=== PATIENT | female | born 1955 | race Two or more races ===

== ENCOUNTER 2025-01-21 10:26 | Emergency (ER) | payer MEDICARE, MEDICAID, SELFPAY ==
[2025-01-21] VITALS (8 sets, daily range): BP systolic 122–173; BP diastolic 67–90; PULSE 71–87; RESP 22–26; TEMP 36.8; O2SAT 95–99
--- NOTE | ~2025-01-21 | XR_ITS ---
EXAMINATION: XR chest 2V DATE: 01/21/2025 12:22 INDICATION: Cough and weakness TECHNIQUE: frontal and lateral views of the chest were obtained. COMPARISON: None FINDINGS: Bronchial wall thickening and airspace opacities in the left mid and lower lung zones suspicious for pneumonia. Right lung is clear. No pleural effusion or pneumothorax. The cardiomediastinal silhouette is normal. Coronary arteries atherosclerotic calcifications versus stenting. Mild to moderate thorac ic spondylosis. IMPRESSION: 1. Bronchial wall thickening and airspace opacities in the left mid and lower lung zone suspicious fo r pneumonia. Reviewed, dictated and finalized at location A. IMPRESSION: 1. Bronchial wall thickening and airspace opacities in the left mid and lower l kathya zone suspicious for pneumonia.
--- NOTE | 2025-01-21 11:11 | PC.NURSE ---
Pt sunita Zabala requests to be called with any updates
[2025-01-21 11:57] LABS: Influenza A QL RT-PCR Negative (Negative); Influenza B QL RT-PCR Negative (Negative); RSV RNA, RT-PCR Negative (Negative); SARS-CoV-2 RNA PCR Negative (Negative)
--- NOTE | 2025-01-21 12:05 | ED_ITS ---
HPI - URI/Sore Throat General Chief Complaint: Upper Respiratory Infection Stated Complaint: UPPER RESP S/SX Time Seen by Provider: 01/21/25 10:39 Limitations: language barrier History of Present Illness HPI Narrative: 69-year-old female with a history of diabetes, hypertension presenting with URI symptoms. Started a few days ago with nasal congestion, body aches, fatigue. States that she has had a productive cough that she denies chest pain or shortness of breath. Continues to feel very fatigued. Her has similar symptoms. No fevers, vomiting, diarrhea, leg swelling. History obtained using japanese interpreter iPad. Related Data Allergies Allergy/AdvReac Type Severity Reaction Status Date / Time No Known Allergies Allergy Verified 01/21/25 10:40 Review of Systems 2 Review of Systems: All systems reviewed & are unremarkable except as noted in HPI and below Exam 2 Narrative: GENERAL: Nontoxic, no acute distress, pleasant cooperative HEAD: Normocephalic, atraumatic. EYES: PERRLA and EOMI. ENT: Mucous membranes tacky NECK: Supple. CHEST: No respiratory distress. Crackles in bilateral bases HEART: Regular rate and rhythm ABDOMEN: Soft, nontender, nondistended EXTREMITIES: Normal range of motion. No edema. SKIN: Warm, dry, no rash. NEURO: Alert and oriented x3. PSYCH: Normal mood and affect. Course Vital Signs Vital signs: Vital Signs Temperature 98.2 F 01/21/25 10:31 Pulse Rate 83 01/21/25 10:31 Respiratory Rate 24 H 01/21/25 10:31 Blood Pressure 173/90 H 01/21/25 10:31 Pulse Oximetry 97 01/21/25 10:31 Oxygen Delivery Room Air 01/21/25 10:31 Temperature 98.2 F 01/21/25 10:31 Pulse Rate 79 01/21/25 15:20 Respiratory Rate 24 H 01/21/25 15:20 Blood Pressure 122/67 01/21/25 15:20 Pulse Oximetry 97 01/21/25 15:20 Oxygen Delivery Room Air 01/21/25 10:40 MDM - URI/Sore Throat MDM Narrative Medical decision making narrative: 69-year-old female presenting with several days of URI symptoms. Patient is tachypneic, otherwise vitals are within normal limits. Blood work with hemoglobin of 8.8. Patient states that this is baseline. Patient looks dry, IV fluids are ongoing. Negative for flu, RSV, COVID. Chest x-ray is concerning for pneumonia. Patient received a dose of IV Rocephin and doxycycline. Will send in for Augmentin and doxy for the next 5 days. Recommend close PCP follow- up. Strict return precautions given. Patient and her son and are agreeable with this plan. All questions answered. Discharged in stable condition Differential Diagnosis Differential diagnosis: Likely upper respiratory infection, viral infection, bronchitis, influenza and other (pneumonia) Medical Records Attestation: I reviewed the patient's medical records. Lab Data Attestation: I reviewed the patient's lab results. 01/21/25 13:42 01/21/25 13:42 Labs: Lab Results 01/21/25 01/21/25 Range/Units 11:16 13:42 WBC 8.5 (4.5-10.0) K/mm3 RBC 4.95 (4.2-5.4) M/mm3 Hgb 8.8 L (12.0-15.0) g/dL Hct 30.6 L (37.0-47.0) % MCV 61.8 L (80-100) fl MCH 17.8 L (26-34) pg MCHC 28.8 L (32-36) g/dl RDW 15.3 H (11.5-14.5) % Plt Count 169 (150-375) k/mm3 MPV TNP Immature Gran % (Auto) 0.7 H (0-0.5) % Neut % (Auto) 76.0 H (45.5-73.1) % Lymph % (Auto) 14.2 L (18.3-44.2) % [place] % (Auto) 8.8 H (2.6-8.5) % Eos % (Auto) 0.1 (0-4.4) % Baso % (Auto) 0.2 (0.2-1.2) % Lymph # (Auto) 1.20 (0.9-3.2) K/mm3 [place] # (Auto) 0.7 H (0.1-0.6) K/mm3 Eos # (Auto) 0.0 (0-0.3) K/mm3 Baso # (Auto) 0.0 (0.0-0.1) K/mm3 Abs Immat Gran (auto) 0.06 H (0.00-0.031) K/mm3 Absolute Neuts (auto) 6.4 (1.3-6.7) K/mm3 Absolute Nucleated RBC 0.000 (0.0-0.012) K/mm3 Band Neutrophils % Not Reportable Nucleated RBC % 0.0 (0.0-0.2) % Platelet Estimate Adequate (Adequate) % Immature Plt Fraction 3.8 (0.9-11.2) % Microcytosis 1+ (NORMAL) Ovalocytes 1+ [place] Cells 2+ Schistocytes None seen Sodium 130 L (137-145) mmol/L Potassium 4.2 (3.4-5.0) mmol/L Chloride 97 L (98-107) mmol/L Carbon Dioxide 19 L (22-30) mmol/L Anion Gap 14 H (4-12) mmol/L BUN 21 H (7-17) mg/dL Creatinine 1.20 H (0.7-1.0) mg/dL Estim Creat Clear Calc 34 ml/min Estimated GFR 45 L (59 - ) Glucose 277 H (65-110) mg/dL Lactic Acid 1.0 (0.7-2.0) mmol/L Calcium 8.2 L (8.4-10.2) mg/dL Total Bilirubin 0.7 (0.2-1.3) mg/dL AST 33 (14-36) U/L ALT 19 (6-35) U/L Alkaline Phosphatase 59 (38-126) U/L Total Protein 6.0 L (6.3-8.2) g/dL Albumin 3.0 L (3.5-5.1) g/dL Influenza A (RT-PCR) Negative (Negative) Influenza B (RT-PCR) Negative (Negative) RSV (RT-PCR) Negative (Negative) SARS-CoV-2 RNA (RT-PCR) Negative (Negative) Imaging Data Radiologist's impression: ITS Impressions Chest X-Ray 01/21/25 12:26 IMPRESSION: 1. Bronchial wall thickening and airspace opacities in the left mid and lower lung zone suspicious for pneumonia. Critical Care Time Critical Care Time Critical Care Time: No Discharge Plan Discharge Clinical Impression: Pneumonia, Chronic anemia Patient Disposition: Home Condition: Stable Instructions: Antibiotic Form, Pneumonia (ED) Additional Instructions: Your chest x-ray shows pneumonia. Please complete the antibiotics as prescribed and follow-up closely with primary care. If your symptoms worsen or other concerning symptoms arise, please return to the ER. Patient Language: [place] Prescriptions: New amoxicillin-pot clavulanate 875-125 mg tablet 1 tablet PO Q12H 5 Days Qty: 10 0RF doxycycline hyclate 100 mg tablet 100 mg PO BID 5 Days Qty: 10 0RF Follow-up/Referrals: Richard Cano MD [Physician] -
[2025-01-21] MEDS: SODIUM CHLORIDE 0.9% IV 1,000 ML 999 ML IV CONT (13:47)
[2025-01-21] MEDS: KETOROLAC 15 MG/ML VIAL (*BKC) IV PUSH (13:48)
--- NOTE | 2025-01-21 13:53 | PC.NURSE ---
Per ALIE Salvador blood cultures are not needed prior to starting antibiotics
[2025-01-21 13:59] LABS: Basophils Percent Auto 0.2 % (0.2-1.2); Eosinophils Percent Auto 0.1 % (0-4.4); Hematocrit 30.6 % (37.0-47.0); Hemoglobin 8.8 g/dL (12.0-15.0); Immature Granulocyte Absolute 0.06 K/mm3 (0.00-0.031); Immature Granulocyte Percent A 0.7 % (0-0.5); Immature Platelet Fraction Pct 3.8 % (0.9-11.2); Lymphocytes Percent Auto 14.2 % (18.3-44.2); Mean Corpuscular HGB Conc 28.8 g/dl (32-36); Mean Corpuscular Hemoglobin 17.8 pg (26-34); Mean Corpuscular Volume 61.8 fl (80-100); Monocytes Absolute Auto 0.7 K/mm3 (0.1-0.6); Monocytes Percent Auto 8.8 % (2.6-8.5); Neutrophils Absolute Auto 6.4 K/mm3 (1.3-6.7); Platelet Count Result 169 k/mm3 (150-375); Red Blood Count 4.95 M/mm3 (4.2-5.4); Red Cell Distribution Width 15.3 % (11.5-14.5); White Blood Count 8.5 K/mm3 (4.5-10.0)
[2025-01-21 14:14] LABS: Alanine Aminotransferase 19 U/L (6-35); Alkaline Phosphatase 59 U/L (38-126); Anion Gap 14 mmol/L (4-12); Aspartate Amino Transferase 33 U/L (14-36); Bilirubin,Total 0.7 mg/dL (0.2-1.3); Blood Urea Nitrogen 21 mg/dL (7-17); Calcium 8.2 mg/dL (8.4-10.2); Carbon Dioxide 19 mmol/L (22-30); Chloride 97 mmol/L (98-107); Estimated CRCL calculation 34 ml/min; Estimated Glomerular Filt Rate 45; Glucose 277 mg/dL (65-110); Potassium 4.2 mmol/L (3.4-5.0); Sodium 130 mmol/L (137-145)
[2025-01-21] MEDS: cefTRIAXone 2 GM/NS 100 ML 2 GM/100 ML BAG IVPB (14:16)
[2025-01-21 14:47] LABS: Platelet Estimate Adequate (Adequate)
[2025-01-21 14:48] LABS: Burr Cells 2+; Microcytosis 1+ (NORMAL); Ovalocytes 1+; Schistocytes None Seen
[2025-01-21] MEDS: DOXYCYCLINE 100 MG/NS 100 ML 100 MG/100 ML BAG IVPB (15:15)
--- NOTE | 2025-01-21 15:19 | PC.NURSE ---
Dr. Luna at bedside updating pt. and pt. son at bedside.
--- NOTE | 2025-01-21 16:24 | PC.NURSE ---
Son called and notified pt. is ready for d/c. Son state he will be to bedside in 15 minutes to pick her up.
== END 2025-01-21 16:53 | disposition home or self-care (01) ==
PROVIDERS: Emergency Provider Emergency Medicine; PCP Internal Medicine
DX: J18.9 Pneumonia, unspecified organism (principal); D64.9 Anemia, unspecified; Z20.822 Contact with and (suspected) exposure to COVID-19; E11.9 Type 2 diabetes mellitus without complications; I10 Essential (primary) hypertension
CPT/HCPCS: 36415; 71046; 80053; 83605; 85025; 85055; 87637; 96361; 96365; 96368; 96375; 99284; J0696; J1885; J7030

== ENCOUNTER 2025-03-04 16:07 | Inpatient (IN) | payer MEDICARE, MEDICAID, SELFPAY ==
[2025-03-04] VITALS (14 sets, daily range): BP systolic 169–207; BP diastolic 97–112; PULSE 91–103; RESP 12–25; TEMP 37.1–37.3; O2SAT 86–99; BMI 24.2
--- NOTE | ~2025-03-04 | CT_ITS ---
EXAMINATION: CTA chest PE protocol DATE: 03/04/2025 21:30 CDT INDICATION: Borderline hypoxia elevated d-dimer TECHNIQUE: Computed tomographic angiography (CTA) of the chest was performed with 100 mL Omnipaque-35 0 intravenous contrast. The dose-length product was 194.67 mGy-cm. Maximum intensity projection 3D-re constructions of the aorta and other arteries were constructed by the technologist on a separate work station. COMPARISON: None. FINDINGS/OBSERVATIONS: PULMONARY ARTERIES: No filling defect is identified within the main or proximal pulmonary artery. The main pulmonary artery is not enlarged. THORACIC AORTA: No aneurysmal dilatation or dissection is present. The great vessels are intact LUNGS: Large bilateral pleural effusions with adjacent compressive atelectasis MEDIASTINUM: No morphologically suspicious or pathologically enlarged lymph nodes are identified with in the mediastinum or bilateral axilla. BONES OF THE CHEST: No acute fracture. No significant degenerative disease. No lytic or blastic lesions. HEART: The heart is enlarged, without pericardial effusion. Reflux of intravenous contrast into the hepatic veins suggesting a component of right heart failure. IMPRESSION: No pulmonary embolus. No thoracic aortic dissection. Large bilateral pleural effusions with adjacent atelectasis. Findings suggesting right heart failure, as detailed above. Reviewed, dictated and finalized at location A.
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
--- NOTE | ~2025-03-04 | XR_ITS ---
EXAMINATION: XR chest 1V DATE: 03/04/2025 17:20 INDICATION: Fall TECHNIQUE: frontal view of the chest was obtained. COMPARISON: Chest radiograph dated 01/21/2025 FINDINGS: Interstitial and airspace opacities in the bilateral mid to lower lung zones. There is likely small l eft pleural effusion with some fluid tracking along the fissure. No pneumothorax. Portions of the lef t heart border obscured by the adjacent lung disease or effusion. IMPRESSION: 1. Interstitial and airspace opacities in the bilateral mid and lower lung zones which could be due t o pulmonary edema, pneumonia, atelectasis or some combination thereof. 2. Small left pleural effusion. Reviewed, dictated and finalized at location A. IMPRESSION: 1. Interstitial and airspace opacities in the bilateral mid and lower lung zone s which could be due to pulmonary edema, pneumonia, atelectasis or some combina tion thereof. 2. Small left pleural effusion.
--- NOTE | ~2025-03-04 | XR_ITS ---
EXAMINATION: XR knee RT min 4V DATE: 03/04/2025 17:20 INDICATION: Right knee injury post fall TECHNIQUE: Anteroposterior, 2 oblique and crosstable lateral views of the right knee were obtained COMPARISON: None. FINDINGS: Alignment is normal. No fracture. Joint spaces appear normal on nonweightbearing imaging. No right k nee joint effusion/layering lipohemarthrosis. Diffuse subcutaneous edema about the visualized calf, k nee and distal thigh. IMPRESSION: 1. No right knee joint effusion or osseous abnormality. Reviewed, dictated and finalized at location A.
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
--- NOTE | ~2025-03-04 | CT_ITS ---
EXAMINATION: CT lumbar spine wo con DATE: 03/04/2025 17:25 INDICATION: Fall TECHNIQUE: Computed tomography (CT) of the lumbar spine was performed without intravenous contrast. A utomated exposure control and iterative reconstruction technique were employed. The dose-length produ ct was 185.25 mGy-cm. COMPARISON: None FINDINGS: Alignment is normal. Bilateral hypoplastic riblets at T12 and left-sided sacralization at L5. Acute-a ppearing L1 compression fracture with 20% anterior vertebral body height loss. Chronic appearing mini mal anterior wedging at T12 and L3 without evident acute fracture. Schmorl's node along the inferior endplate of L2. Mild disc height loss at L2-L3 and L3-L4. Vacuum phenomena at the L3-L4 and L4-L5 dis c spaces. There are bilateral pleural effusions. The following disc levels are specifically discussed : T11-T12: The disc does not extend beyond the endplate margin. There is mild to moderate bilateral fac et joint osteoarthritis. There is mild left neural foraminal stenosis. There is no central canal sten osis. T12-L1: Disc is mildly bulging. There is mild to moderate bilateral facet joint osteoarthritis. There is mild left neural foraminal stenosis. There is mild central canal stenosis. L1-L2: The disc does not extend beyond the endplate margin. There is mild to moderate bilateral facet joint osteoarthritis. There is no neural foraminal stenosis. There is no central canal stenosis. L2-L3: Disc is bulging. There is mild right and moderate left facet joint osteoarthritis. There is mi ld right and moderate left neural foraminal stenosis. There is mild to moderate central canal stenosi s. L3-L4: Disc is bulging. There is mild hypertrophy of the ligamentum flavum. There is mild to moderat e bilateral facet joint osteoarthritis. There is mild to moderate right and moderate left neural fora ilda stenosis. There is moderate central canal stenosis. L4-L5: Disc is bulging. There is hypertrophy of the ligamentum flavum. There is mild to moderate left and severe right facet joint osteoarthritis. There is moderate bilateral neural foraminal stenosis. There is severe central canal stenosis. L5-S1: Disc is mildly bulging. There is severe bilateral facet joint osteoarthritis. There is mild bi lateral neural foraminal stenosis. There is mild central canal stenosis. IMPRESSION: 1. Acute L1 compression fracture with 20% anterior vertebral body height loss. 2. Mild to moderate lumbar vertebral body height loss most notable for severe central canal stenosis at L4-L5. 3. Bilateral pleural effusions. Reviewed, dictated and finalized at location A. IMPRESSION: 1. Acute L1 compression fracture with 20% anterior vertebral body height loss. 2. Mild to moderate lumbar vertebral body height loss most notable for severe c entral canal stenosis at L4-L5. 3. Bilateral pleural effusions.
--- NOTE | 2025-03-04 16:38 | ECG_ITS ---
Test Date: 2025-03-04 18:29:49 Measurements Intervals [place] Rate: 98 P: 30 GA: 144 QRS: -19 QRSD: 76 T: 75 QT: 351 QTc: 449 Interpretive Statements SINUS RHYTHM POSSIBLE LEFT ATRIAL ENLARGEMENT ANTEROSEPTAL INFARCT, AGE INDETERMINATE BORDERLINE ST-T WAVE ABNORMALITY- HIGH LATERAL LEADS ABNORMAL ECG No previous ECG available for comparison Electronically Signed On 03-04-2025 20:16:24 CDT by Brendan Ernst D.O.
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
[2025-03-04 18:38] LABS: Alveolar/Arterial O2 Gradient 123.5 mmHg; Base Excess ABG -1.9 mEq/l (+/-2.0); Fractional Inspired Oxygen 36 %; HCO3 ABG 21.9 mEq/l (22.0-26.0); Oxygen Content ABG 12.8 %vol (16.0-22.0); Oxygen Saturation ABG 97.5 % (95.0-100.0); Oxyhemoglobin 95.9 % THb (90.0-100.0); PCO2 ABG 33.6 mmHg (35.0-45.0); PO2 ABG 94.2 mmHg (80.0-100.0); PO2 FiO2 Ratio Arterial Blood 2.62 %; Total Hemoglobin 9.4 g/dL (12.0-18.0); pH ABG 7.432 (7.350-7.450)
[2025-03-04 18:40] LABS: Device NASAL CANNULA; Modified Allen's Test Pass; Site Drawn LEFT RADIAL
[2025-03-04 18:55] LABS: Basophils Percent Auto 0.1 % (0.2-1.2); Eosinophils Percent Auto 0.4 % (0-4.4); Hematocrit 31.2 % (37.0-47.0); Hemoglobin 9.1 g/dL (12.0-15.0); Immature Granulocyte Percent A 1.4 % (0-0.5); Immature Platelet Fraction Pct 2.1 % (0.9-11.2); Lymphocytes Absolute Auto 1.09 K/mm3 (0.9-3.2); Lymphocytes Percent Auto 15.7 % (18.3-44.2); Mean Corpuscular HGB Conc 29.2 g/dl (32-36); Mean Corpuscular Volume 61.7 fl (80-100); Monocytes Absolute Auto 0.4 K/mm3 (0.1-0.6); Monocytes Percent Auto 6.2 % (2.6-8.5); Neutrophils Absolute Auto 5.3 K/mm3 (1.3-6.7); Neutrophils Percent Auto 76.2 % (45.5-73.1); Platelet Count Result 272 k/mm3 (150-375); Red Blood Count 5.06 M/mm3 (4.2-5.4); Red Cell Distribution Width 18.9 % (11.5-14.5); White Blood Count 6.9 K/mm3 (4.5-10.0)
[2025-03-04 19:04] LABS: Alanine Aminotransferase 17 U/L (6-35); Albumin Level 2.9 g/dL (3.5-5.1); Alkaline Phosphatase 67 U/L (38-126); Anion Gap 7 mmol/L (4-12); Aspartate Amino Transferase 24 U/L (14-36); Bilirubin,Total 0.5 mg/dL (0.2-1.3); Blood Urea Nitrogen 12 mg/dL (7-17); Calcium 8.9 mg/dL (8.4-10.2); Carbon Dioxide 22 mmol/L (22-30); Chloride 104 mmol/L (98-107); Estimated CRCL calculation 28 ml/min; Estimated Glomerular Filt Rate 59; Glucose 330 mg/dL (65-110); Sodium 133 mmol/L (137-145); Total Protein 5.7 g/dL (6.3-8.2)
[2025-03-04 19:07] LABS: Lactic Acid Reflex 1.2 mmol/L (0.7-2.0)
[2025-03-04 19:13] LABS: NT Pro B Type Natriuretic Pept 24500 pg/mL (19.9-100)
[2025-03-04 19:16] LABS: INR 0.9; Prothrombin Time 12.3 Seconds (11.1-14.7)
[2025-03-04 19:17] LABS: Partial Thromboplastin Time 28.6 Seconds (22.3-36.8)
[2025-03-04 19:27] LABS: D Dimer 2.31 ug/mL (<0.48)
[2025-03-04 19:30] LABS: Influenza A QL RT-PCR Negative (Negative); Influenza B QL RT-PCR Negative (Negative); RSV RNA, RT-PCR. Negative (Negative); SARS-CoV-2 RNA PCR Negative (Negative)
[2025-03-04 19:38] LABS: Platelet Estimate Adequate (Adequate)
[2025-03-04 19:39] LABS: Band Neutrophils Percent 0 % (0-6); Hypochromasia 1+; Schistocytes None Seen
[2025-03-04 19:40] LABS: Anisocytosis 2+; Microcytosis 2+ (NORMAL)
[2025-03-04] MEDS: FUROSEMIDE INJ 40 MG/4 ML VIAL IV PUSH (19:46)
[2025-03-04] MEDS: MORPHINE SULFATE (*CRX) 2 MG/ML INJ IV PUSH (19:46)
--- NOTE | 2025-03-04 19:53 | PC.NURSE ---
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
[2025-03-04 20:16] LABS: Add Urine Microscopic? YES; Appearance Urine Clear (Clear); Bacteria Urine None Seen /hpf; Bilirubin Urine Negative (Negative); Blood Urine 1+ (Negative); Color Urine Yellow (Yellow); Glucose Urine UA 3+ mg/dL (Negative); Ketones Urine Trace mg/dL (Negative); Leukocyte Esterase Ur Negative LEU/UL (Negative); Nitrate Urine Negative (Negative); Protein Urine 4+ mg/dL (Negative); RBC Urine 0-2 /hpf (0-2); Specific Grav Ur 1.023 (1.001-1.035); Squamous Epithelial Cell Urine None Seen /hpf (Few); Urobilinogen Urine 0.2 mg/dL (<2.0); WBC Urine 0-5 /hpf (0-3)
[2025-03-05] VITALS (12 sets, daily range): BP systolic 130–198; BP diastolic 61–103; PULSE 86–108; RESP 14–18; TEMP 36.2–37.3; O2SAT 95–100
--- NOTE | 2025-03-05 | ECHO_ITS ---
Patient Info Name: Lizzy Zabala Age: 69 years : 1955 Gender: Female Ht: 49 in Wt: 111 lbs BSA: 1.35 m2 HR: 90 bpm BP: 190 / 101 mmHg Technical Quality: Good Exam Date: 03/05/2025 11:11 AM Patient Status: I Admit Date: 03/05/2025 Exam Type: CA echo dop color flow w con Complete two-dimensional, color flow and Doppler transthoracic echocardiogram is performed with contrast to opacify the left ventricle and to improve the deliniation of the left ventricle endocardial borders. Staff Referring Physician: Donita Bernal [employer] Rental Clerk: Zee Parmar Attending Provider: Narda Burt DO Contrast/Agitated Saline Contrast/Ag. Saline: Definity Amount: 2.00 ml Administered By: Zee Parmar Existing IV Access: Yes IV Access Condition: patent with no signs of infiltration Summary 1. Left ventricular chamber dimension is mildly enlarged. 2. Left ventricular systolic function is moderately reduced, estimated at 35-40. 3. There is mild concentric increased left ventricular wall thickness. 4. The left ventricular diastolic function is grade I diastolic dysfunction. 5. Definity contrast administered improved wall motion interpretation. 6. E/e' 11 is mildly elevated. 7. Left atrial chamber dimension is mildly enlarged. 8. There is mild aortic valve sclerosis. 9. There is trace aortic valve regurgitation. 10. There is trace mitral valve regurgitation. 11. There is mild tricuspid valve regurgitation. 12. No pulmonary hypertension, estimated pulmonary arterial systolic pressure is 26 mmHg. 13. There is trace pulmonic regurgitation. 14. Pleural effusion. Left Ventricle E/e' 11 is mildly elevated. Left ventricular chamber dimension is mildly enlarged. Left ventricular systolic function is moderately reduced, estimated at 35-40. There is mild concentric increased left ventricular wall thickness. The left ventricular diastolic function is grade I diastolic dysfunction. Definity contrast administered improved wall motion interpretation. Right Ventricle Right ventricular chamber dimension is normal. Right ventricular systolic function is normal and with normal TAPSE 2.0 cm. Left Atria Left atrial chamber dimension is mildly enlarged. Right Atria Right atrial chamber dimension is normal. Aortic Valve The aortic valve is trileaflet. There is mild aortic valve sclerosis. There is no aortic valve stenosis. There is trace aortic valve regurgitation. Pulmonic Valve There is trace pulmonic regurgitation. Mitral Valve There is no mitral valve stenosis. There is trace mitral valve regurgitation. Tricuspid Valve There is mild tricuspid valve regurgitation. No pulmonary hypertension, estimated pulmonary arterial systolic pressure is 26 mmHg. Pericardium/Pleural There is no pericardial effusion. Pleural effusion. Inferior Vena Cava Normal inferior vena cava with >50% collapse upon inspiration consistent with normal right atrial pressure, 5 mmHg. Aorta The aortic root size at the sinus of Valsalva is normal. Left Ventricular Outflow Tract Name Value Normal LVOT 2D LVOT Diameter 1.7 cm LVOT Doppler LVOT Peak Velocity 80 cm/s LVOT Peak Gradient 3 mmHg LVOT Mean Gradient 1 mmHg LVOT VTI 14 cm LVOT Stroke Volume 33 ml LVOT CO 3.0 l/min LVOT CI 2.2 l/min/m2 Pulmonic Valve Name Value Normal RVOT Doppler RVOT Peak Velocity 82 cm/s RVOT Peak Gradient 3 mmHg PV Doppler PV Peak Velocity 115 cm/s PV Peak Gradient 5 mmHg Mitral Valve Name Value Normal MV Diastolic Function MV E Peak Velocity 35 cm/s MV A Peak Velocity 91 cm/s MV E/A 0.4 MV Decel Time (PW) 285 ms MV Annular TDI MV E/e' (Septal) 10.6 MV E/e' (Lateral) 13.5 MV E/e' (Average) 12.1 Tricuspid Valve Name Value Normal TV Regurgitation Doppler TR Peak Velocity 229 cm/s TR Peak Gradient 21 mmHg Estimated PAP/RSVP RA Pressure 5 mmHg <=5 PA Systolic Pressure 26 mmHg <36 RV Systolic Pressure 26 mmHg <36 Aortic Valve Name Value Normal AV Doppler AV Peak Velocity 131 cm/s AV Peak Gradient 7 mmHg AV Area (Cont Eq Ezequiel) 1.4 cm2 AV DI (Ezequiel) 0.61 AV Regurgitation 2D LVOT Area 2.3 cm2 Ventricles Name Value Normal LV Dimensions 2D/MM IVS Diastolic Thickness (2D) 1.0 cm 0.6-1.0 LVID Diastole (2D) 4.8 cm 3.8-5.2 LVIW Diastolic Thickness (2D) 0.9 cm 0.6-0.9 LVID Systole (2D) 4.0 cm 2.2-3.5 LVOT Diameter 1.7 cm LV Mass (2D Cubed) 151.72 g 67.00-162.00 LV Mass Index (2D Cubed) 112 g/m2 43-95 Relative Wall Thickness (2D) 0.36 <=0.42 LV Fractional Shortening/Ejection Fraction 2D/MM LV Fractional Shortening (2D) 16 % 27-45 LV EF (2D Teichholz) 34 % LV Diastolic Volume (4C MOD) 61 ml LV EF (4C MOD) 25 % LV Diastolic Volume (2C MOD) 76 ml LV EF (2C MOD) 29 % LV Diastolic Volume (BP MOD) 72 ml 46-106 LV Diastolic Volume Index (BP MOD) 53 ml/m2 29-61 LV Systolic Volume (BP MOD) 50 ml 14-42 LV Systolic Volume Index (BP MOD) 37 ml/m2 8-24 LV EF (BP MOD) 30 % 54-74 LV Diastolic Length (4C) 6.4 cm LV Systolic Length (4C) 6.6 cm LV Stroke Volume (4C MOD) 15 ml Atria Name Value Normal LA Dimensions LA Volume (4C A-L) 43 ml LA Volume (BP A-L) 42 ml RA Dimensions RA Systolic Major [place] Length (4C) 4.4 cm 2.2-2.8 RA Area (4C) 6.8 cm2 <=18.0 Report Signatures
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
[2025-03-05 08:15] LABS: Glucose Point of Care 252 mg/dl (65-105)
[2025-03-05] MEDS: EMPAGLIFLOZIN 25 MG TABLET BY MOUTH (08:30)
[2025-03-05] MEDS: ATORVASTATIN 20 MG TABLET PO (08:30)
[2025-03-05] MEDS: FUROSEMIDE INJ 40 MG/4 ML VIAL IV PUSH ×2 (08:31→20:42)
[2025-03-05] MEDS: MUPIROCIN 2% OINT 22 GM TUBE 1 APPLIC TOPICAL (11:45)
[2025-03-05 12:16] LABS: Glucose Point of Care 341 mg/dl (65-105)
[2025-03-05] MEDS: hydrALAZINE HCL 20 MG/ML VIAL 10 MG IV PUSH (12:18)
[2025-03-05] MEDS: INSULIN ASPART (*BKC) 100 UNITS/ML SUB-Q ×3 (12:18→20:41)
[2025-03-05] MEDS: PERFLUTREN LIPID MICROSPHERES 1.5 ML VIAL DILUTED TO 10 ML TOTAL VOLUME IV PUSH (12:45)
--- NOTE | 2025-03-05 13:02 | IVDEFINITY ---
Prior to administration of IV Definity the patient was educated on the risks and benefits of the imaging enhancing agent including potential adverse side effects. The patient verbalized understanding. Allergies were verified. No exclusion criteria were identified and at least one of the following inclusion criteria were met: 1) physician request, 2) patient technically difficult to image (per the [place] [employer] guidelines of two or more segments not discernable within the apical view), or 3) questionable left ventricular function. ?
[2025-03-05 16:04] LABS: NT Pro B Type Natriuretic Pept > 30000 pg/mL (19.9-100)
[2025-03-05 16:48] LABS: Glucose Point of Care 349 mg/dl (65-105)
[2025-03-05 21:29] LABS: Glucose Point of Care 367 mg/dl (65-105)
[2025-03-06] VITALS (13 sets, daily range): BP systolic 153–180; BP diastolic 80–89; PULSE 78–97; RESP 14–18; TEMP 36.8–37.2; O2SAT 95–100
[2025-03-06] MEDS: METOPROLOL TARTRATE INJ 5 MG/5 ML VIAL IV PUSH (06:11)
[2025-03-06 08:19] LABS: Glucose Point of Care 326 mg/dl (65-105)
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
[2025-03-06] MEDS: ATORVASTATIN 20 MG TABLET PO (09:30)
[2025-03-06] MEDS: EMPAGLIFLOZIN 25 MG TABLET BY MOUTH (09:30)
[2025-03-06] MEDS: FUROSEMIDE INJ 40 MG/4 ML VIAL IV PUSH (09:30)
[2025-03-06] MEDS: MUPIROCIN 2% OINT 22 GM TUBE 1 APPLIC TOPICAL (09:32)
[2025-03-06] MEDS: ENOXAPARIN 40 MG/0.4 ML SYRINGE SUB-Q (09:32)
[2025-03-06] MEDS: INSULIN ASPART (*BKC) 100 UNITS/ML SUB-Q ×5 (09:32→21:14)
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
[2025-03-06 11:16] LABS: Basophils Percent Auto 0.2 % (0.2-1.2); Eosinophils Absolute Auto 0.1 K/mm3 (0-0.3); Eosinophils Percent Auto 1.8 % (0-4.4); Hematocrit 31.2 % (37.0-47.0); Hemoglobin 9.1 g/dL (12.0-15.0); Immature Granulocyte Absolute 0.06 K/mm3 (0.00-0.031); Immature Platelet Fraction Pct 1.9 % (0.9-11.2); Lymphocytes Absolute Auto 1.06 K/mm3 (0.9-3.2); Lymphocytes Percent Auto 17.4 % (18.3-44.2); Mean Corpuscular HGB Conc 29.2 g/dl (32-36); Mean Corpuscular Hemoglobin 18.1 pg (26-34); Mean Corpuscular Volume 61.9 fl (80-100); Mean Platelet Volume 10.5 fl (7.4-10.4); Monocytes Absolute Auto 0.5 K/mm3 (0.1-0.6); Monocytes Percent Auto 7.6 % (2.6-8.5); Neutrophils Absolute Auto 4.4 K/mm3 (1.3-6.7); Platelet Count Result 283 k/mm3 (150-375); Red Blood Count 5.04 M/mm3 (4.2-5.4); Red Cell Distribution Width 18.6 % (11.5-14.5); White Blood Count 6.1 K/mm3 (4.5-10.0)
[2025-03-06 11:25] LABS: Alanine Aminotransferase 14 U/L (6-35); Albumin Level 2.7 g/dL (3.5-5.1); Alkaline Phosphatase 62 U/L (38-126); Anion Gap 7 mmol/L (4-12); Aspartate Amino Transferase 21 U/L (14-36); Bilirubin,Total 0.5 mg/dL (0.2-1.3); Blood Urea Nitrogen 13 mg/dL (7-17); Calcium 8.9 mg/dL (8.4-10.2); Carbon Dioxide 28 mmol/L (22-30); Chloride 98 mmol/L (98-107); Estimated Glomerular Filt Rate 48; Glucose 418 mg/dL (65-110); Potassium 3.3 mmol/L (3.4-5.0); Sodium 133 mmol/L (137-145); Total Protein 5.6 g/dL (6.3-8.2)
[2025-03-06 11:35] LABS: NT Pro B Type Natriuretic Pept 20100 pg/mL (19.9-100)
[2025-03-06 12:20] LABS: Glucose Point of Care 389 mg/dl (65-105)
--- NOTE | 2025-03-06 12:22 | PM.CNCAR ---
Assessment and Plan Assessment and plan (1) Acute heart failure: Code(s): I50.9 - Heart failure, unspecified Status: Acute Plan 69-year-old woman with diabetes, hypertension, and hyperlipidemia presented with mechanical fall found to be in acute decompensated systolic heart failure Acute decompensated systolic heart failure of new onset -she is now euvolemic after diuresis -will stop her Lasix and start her on Entresto 24-26 mg p.o. b.i.d. -we will start her on metoprolol succinate 25 mg p.o. daily -she is already on Jardiance for diabetes -I have explained the ischemic eval via cardiac catheterization procedure in detail along with its risk and benefits to the patient via [employer] as well as to the family -patient and her family agreed to proceed forward will be scheduled for tomorrow -keep patient NPO past midnight Hypertension -likely will be better control on Entresto 24-26 mg p.o. b.i.d. Hyperlipidemia -continue atorvastatin 20 mg every evening History of Present Illness History of Present Illness Consult date/time: 03/06/25 12:22 Requesting physician: Ulisses Jeff PA-C Consult reason: congestive heart failure Reason For Visit: Hypoxia, Pleural effusions, CHF exacerbation Narrative: 69-year-old woman with diabetes, hypertension, and hyperlipidemia presented with mechanical fall. 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 Upon arrival she was found to have lower extremity swelling as well as evidence of vascular congestion on chest imaging. She denies any orthopnea and chest pain. I spoke with her son Tatianna Zabala (Terence) and his under findings of congestive heart failure along with the workup to determine if she has ischemic cardiomyopathy. Have discussed the cardiac catheterization procedure in detail along with its risk and benefits. Have also spoke with the patient via [employer], Nicky [phone]. All questions were answered and patient and family agree to proceed forward. Review of Systems Cardiovascular: Cardiovascular: Reports as per HPI Respiratory: Respiratory: Reports as per HPI [facility] Past Medical History Medical History Diabetes Hypertension Social History Social History Social History: Originally from [facility]; resides in [facility] Smoking status: Never smoker Alcohol intake: never Substance use: never Substance use type: does not use Do You Feel Safe in your Home?: Yes Lack of Transportation: No Lack of Food: Never True Current Housing: I Have Housing Concerned About Future Housing: No Difficulty Paying Gas/Electric Bills: No Difficulty Paying for Meds: No Currently Unemployed: No Education: Decline to Answer Difficulty w/ Childcare or Family Care: No Living arrangements: with family Spiritual care concerns: No Meds Home Medications and Allergies Home Medications ?Medication ?Instructions ?Recorded ?Confirmed ?Type atorvastatin 20 mg tablet (Lipitor) 20 mg PO DAILY 03/04/25 03/04/25 History dapagliflozin propanediol 10 mg 10 mg PO DAILY 03/04/25 03/04/25 History tablet (Farxiga) metformin 500 mg tablet 1,000 mg PO DAILY 03/04/25 03/04/25 History Allergies Allergy/AdvReac Type Severity Reaction Status Date / Time No Known Allergies Allergy Verified 01/21/25 10:40 Vital Signs Vital Signs - 24 hr 03/05/25 13:56 03/05/25 14:00 03/05/25 16:00 Temperature 36.2 C L 37.3 C Pulse Rate 98 108 H 97 Respiratory Rate 16 14 Blood Pressure 130/61 139/70 Pulse Oximetry 99 97 Oxygen Delivery 03/05/25 20:00 03/05/25 20:30 03/05/25 21:41 Temperature 36.6 C Pulse Rate 105 H 104 H Respiratory Rate 18 Blood Pressure 150/75 H Pulse Oximetry 95 Oxygen Delivery Room Air 03/06/25 00:00 03/06/25 04:00 03/06/25 05:37 Temperature 37.2 C Pulse Rate 94 81 97 Respiratory Rate 18 Blood Pressure 180/87 H Pulse Oximetry 97 Oxygen Delivery 03/06/25 06:11 03/06/25 07:45 03/06/25 08:00 Temperature Pulse Rate 97 78 Respiratory Rate Blood Pressure Pulse Oximetry 97 Oxygen Delivery Room Air 03/06/25 09:30 Temperature Pulse Rate Respiratory Rate Blood Pressure Pulse Oximetry Oxygen Delivery Room Air Exam Const: General: comfortable HENMT: Mouth: Yes moist mucous membranes Eyes: EOM: EOMs intact bilaterally Neck: Neck: no JVD Resp: Effort & Inspection: normal respiratory effort Auscultation: clear to auscultation bilaterally Cardio: Rate: regular rate Rhythm: regular rhythm GI: GI Palp: Yes Soft to palpation Extrem: General: no pedal edema Results Labs and Meds 03/04/25 18:39 03/06/25 10:42 Lab results: Cardiac Enzymes 03/06/25 Range/Units 10:42 AST 21 (14-36) U/L Comprehensive Metabolic Panel 03/06/25 Range/Units 10:42 Sodium 133 L (137-145) mmol/L Potassium 3.3 L (3.4-5.0) mmol/L Chloride 98 (98-107) mmol/L Carbon Dioxide 28 (22-30) mmol/L BUN 13 (7-17) mg/dL Creatinine 1.13 H (0.7-1.0) mg/dL Glucose 418 H (65-110) mg/dL Calcium 8.9 (8.4-10.2) mg/dL AST 21 (14-36) U/L ALT 14 (6-35) U/L Alkaline Phosphatase 62 (38-126) U/L Total Protein 5.6 L (6.3-8.2) g/dL Albumin 2.7 L (3.5-5.1) g/dL Intake and Output 03/05/25 03/06/25 03/06/25 23:59 07:59 15:59 Intake Total 550 150 120 Output Total 3000 900 Balance -2450 -750 120 Intake: Oral 550 150 120 Output: Catheter Urine 3000 900 External/Condom 3000 900
[2025-03-06 12:45] LABS: Burr Cells 1+; Hypochromasia 1+; Microcytosis 2+ (NORMAL); Ovalocytes 1+; Platelet Estimate Adequate (Adequate); Schistocytes None Seen; Target Cells 1+
[2025-03-06] MEDS: METOPROLOL SUCCINATE EXT REL 25 MG TABCR PO (12:53)
[2025-03-06] MEDS: SACUBITRIL/VALSARTAN 24-26 MG TABLET 1 TAB PO ×2 (12:54→21:14)
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
[2025-03-06 17:06] LABS: Glucose Point of Care 432 mg/dl (65-105)
[2025-03-06 21:07] LABS: Glucose Point of Care 305 mg/dl (65-105)
[2025-03-06] MEDS: INSULIN GLARGINE (*BKC) 100 UNITS/ML 10 UNITS SUB-Q (21:14)
[2025-03-07] VITALS (24 sets, daily range): BP systolic 128–170; BP diastolic 63–88; PULSE 68–94; RESP 16–22; TEMP 36.6–37; O2SAT 90–97
[2025-03-07 05:19] LABS: Basophils Percent Auto 0.2 % (0.2-1.2); Eosinophils Absolute Auto 0.1 K/mm3 (0-0.3); Eosinophils Percent Auto 2.1 % (0-4.4); Hematocrit 29.9 % (37.0-47.0); Hemoglobin 8.8 g/dL (12.0-15.0); Immature Granulocyte Absolute 0.04 K/mm3 (0.00-0.031); Immature Granulocyte Percent A 0.6 % (0-0.5); Immature Platelet Fraction Pct 2.3 % (0.9-11.2); Lymphocytes Absolute Auto 1.39 K/mm3 (0.9-3.2); Lymphocytes Percent Auto 22.1 % (18.3-44.2); Mean Corpuscular HGB Conc 29.4 g/dl (32-36); Mean Corpuscular Hemoglobin 18.3 pg (26-34); Monocytes Absolute Auto 0.6 K/mm3 (0.1-0.6); Monocytes Percent Auto 9.6 % (2.6-8.5); Neutrophils Absolute Auto 4.1 K/mm3 (1.3-6.7); Neutrophils Percent Auto 65.4 % (45.5-73.1); Platelet Count Result 274 k/mm3 (150-375); Red Blood Count 4.82 M/mm3 (4.2-5.4); Red Cell Distribution Width 18.2 % (11.5-14.5); White Blood Count 6.3 K/mm3 (4.5-10.0)
[2025-03-07 06:45] LABS: Alanine Aminotransferase 12 U/L (6-35); Albumin Level 2.4 g/dL (3.5-5.1); Alkaline Phosphatase 48 U/L (38-126); Anion Gap 4 mmol/L (4-12); Aspartate Amino Transferase 20 U/L (14-36); Bilirubin,Total 0.4 mg/dL (0.2-1.3); Blood Urea Nitrogen 15 mg/dL (7-17); Calcium 8.4 mg/dL (8.4-10.2); Carbon Dioxide 33 mmol/L (22-30); Chloride 100 mmol/L (98-107); Estimated Glomerular Filt Rate 53; Glucose 163 mg/dL (65-110); NT Pro B Type Natriuretic Pept 21200 pg/mL (19.9-100); Potassium 2.8 mmol/L (3.4-5.0); Sodium 137 mmol/L (137-145); Total Protein 5.1 g/dL (6.3-8.2)
[2025-03-07 07:23] LABS: Ovalocytes 1+; Schistocytes Rare; Target Cells 1+
[2025-03-07 07:24] LABS: Hypochromasia 1+; Microcytosis 2+ (NORMAL)
[2025-03-07 07:25] LABS: Polychromasia 1+
[2025-03-07 07:27] LABS: Platelet Estimate Adequate (Adequate)
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
[2025-03-07 08:30] LABS: Glucose Point of Care 135 mg/dl (65-105)
--- NOTE | 2025-03-07 08:38 | WPDHPUPDATE1 ---
History and Physical Update Update Date/Time: 03/07/25 08:38 History and Physical has been reviewed, including an updated exam of the patient. There are NO changes in the patient's condition. Risks, benefits, and alternatives have been discussed and questions answered. Patient agrees to proceed with procedure.
--- NOTE | 2025-03-07 08:39 | P.SEDATION_ITS ---
Moderate Sedation Note-Pt Data Patient Data Allergies Allergy/AdvReac Type Severity Reaction Status Date / Time No Known Allergies Allergy Verified 01/21/25 10:40 Home Medications ?Medication ?Instructions ?Recorded ?Confirmed ?Type atorvastatin 20 mg tablet (Lipitor) 20 mg PO DAILY 03/04/25 03/04/25 History dapagliflozin propanediol 10 mg 10 mg PO DAILY 03/04/25 03/04/25 History tablet (Farxiga) metformin 500 mg tablet 1,000 mg PO DAILY 03/04/25 03/04/25 History Current Medications: Active Medications Atorvastatin Calcium (Atorvastatin 20 Mg Tablet) 20 mg PO QPM PHU Dextrose (Dextrose 50% 25 Gm/50 Ml Syringe) 12.5 gm IV PUSH PRN PRN; Protocol PRN Reason: Hypoglycemia Empagliflozin (Empagliflozin 25 Mg Tablet) 25 mg BY MOUTH DAILY [facility] Last Admin: 03/06/25 09:30 Dose: 25 mg Enoxaparin Sodium (Enoxaparin 40 Mg/0.4 Ml Syringe) 40 mg SUB-Q DAILY [facility]U Last Admin: 03/06/25 09:32 Dose: 40 mg Glucagon (Glucagon For Inj 1 Mg Vial) 1 mg IM PRN PRN; Protocol PRN Reason: Hypoglycemia Glucose (Glucose Oral Gel 15 Gm Of Glucse In 37.5 Gm Tube) 15 gm PO PRN PRN; Protocol PRN Reason: Hypoglycemia Hydralazine HCl (Hydralazine Hcl 20 Mg/Ml Vial) 10 mg IV PUSH Q8H PRN PRN Reason: >180 Systolic >100 Diastolic Last Admin: 03/05/25 12:18 Dose: 10 mg Dextrose (Dextrose 5% 1,000 Ml) 1,000 mls @ 100 mls/hr IVPB PRN PRN; Protocol PRN Reason: Hypoglycemia Potassium Chloride 40 meq/ (Sodium Chloride) 520 mls @ 130 mls/hr IVPB ONCE ONE Stop: 03/07/25 11:21 Insulin Aspart (Insulin Aspart (*Bkc) 100 Units/Ml) 3 - 6 units SUB-Q TIDWM [facility]U; Protocol Last Admin: 03/06/25 17:45 Dose: 6 units Insulin Aspart (Insulin Aspart (*Bkc) 100 Units/Ml) 1 - 3 units SUB-Q HS PHU; Protocol Last Admin: 03/06/25 21:14 Dose: 2 units Insulin Aspart (Insulin Aspart (*Bkc) 100 Units/Ml) 3 units 0.05 units/kg (3 units) SUB-Q TIDWM [facility]U Last Admin: 03/06/25 17:45 Dose: 3 units Insulin Glargine (Insulin Glargine (*Bkc) 100 Units/Ml) 10 units 0.2 units/kg (10 units) SUB-Q HS PHU Last Admin: 03/06/25 21:14 Dose: 10 units Metoprolol Succinate (Metoprolol Succinate Ext Rel 25 Mg Tabcr) 25 mg PO QAM PHU Last Admin: 03/06/25 12:53 Dose: 25 mg Mupirocin (Mupirocin 2% Oint 22 Gm Tube) 1 applic TOPICAL DAILY PHU Last Admin: 03/06/25 09:32 Dose: 1 applic Sacubitril/Valsartan (Sacubitril/Valsartan 24-26 Mg Tablet) 1 tab PO Q12HR [facility]U Last Admin: 03/06/25 21:14 Dose: 1 tab Spironolactone (Spironolactone 25 Mg Tablet) 25 mg PO QAM [facility] Sedation/Anesthesia: No previous sedation/anesthesia problems (including family history). [facility] Past Medical History Medical History Diabetes Hypertension Social History Social History Social History: Originally from [facility]; resides in [facility] Smoking status: Never smoker Alcohol intake: never Substance use: never Substance use type: does not use Do You Feel Safe in your Home?: Yes Lack of Transportation: No Lack of Food: Never True Current Housing: I Have Housing Concerned About Future Housing: No Difficulty Paying Gas/Electric Bills: No Difficulty Paying for Meds: No Currently Unemployed: No Education: Decline to Answer Difficulty w/ Childcare or Family Care: No Living arrangements: with family Spiritual care concerns: No Mod Sed Physical Exam Physical Exam Pre Procedural Exam: Normal: Lungs, Heart Size, Heart Rate and Heart Rhythm Hours since solid foods: 12 Hours since liquid intake: 12 Mallampati Classification: class II Internal Medicine - PN: Obj Da Vital Signs Vital Signs: Vital Signs - 24 hr 03/06/25 09:30 03/06/25 12:00 03/06/25 12:53 Temperature Pulse Rate 80 78 Respiratory Rate Blood Pressure Pulse Oximetry Oxygen Delivery Room Air 03/06/25 14:00 03/06/25 16:00 03/06/25 20:00 Temperature 36.8 C Pulse Rate 88 84 88 Respiratory Rate 14 Blood Pressure 177/89 H Pulse Oximetry 100 Oxygen Delivery 03/06/25 21:00 03/06/25 21:29 03/06/25 22:00 Temperature 37.1 C Pulse Rate 84 Respiratory Rate 16 Blood Pressure 153/80 H Pulse Oximetry 97 95 Oxygen Delivery Room Air Room Air 03/07/25 00:00 03/07/25 04:00 03/07/25 05:40 Temperature 36.6 C Pulse Rate 82 68 78 Respiratory Rate 18 Blood Pressure 161/82 H Pulse Oximetry 96 Oxygen Delivery Intake/Output Intake/Output: Intake & Output 03/04/25 03/05/25 03/06/25 03/07/25 23:59 23:59 23:59 23:59 Intake Total 1070 940 200 Output Total 3800 2600 300 Balance -2730 -1660 -100 Meds/Results Medications: Active Medications Generic Name Dose Route Start Last Admin Trade Name Freq PRN Reason Stop Dose Admin Atorvastatin Calcium 20 mg 03/07/25 18:00 Atorvastatin 20 Mg Tablet PO QPM PHU Dextrose 12.5 gm 03/04/25 22:06 Dextrose 50% 25 Gm/50 Ml Syringe IV PUSH PRN PRN Hypoglycemia Protocol Empagliflozin 25 mg 03/05/25 09:00 03/06/25 09:30 Empagliflozin 25 Mg Tablet BY MOUTH 25 mg DAILY PHU Administration Enoxaparin Sodium 40 mg 03/06/25 09:00 03/06/25 09:32 Enoxaparin 40 Mg/0.4 Ml Syringe SUB-Q 40 mg DAILY PHU Administration Glucagon 1 mg 03/04/25 22:06 Glucagon For Inj 1 Mg Vial IM PRN PRN Hypoglycemia Protocol Glucose 15 gm 03/04/25 22:06 Glucose Oral Gel 15 Gm Of Glucse In 37.5 Gm Tube PO PRN PRN Hypoglycemia Protocol Hydralazine HCl 10 mg 03/05/25 10:24 03/05/25 12:18 Hydralazine Hcl 20 Mg/Ml Vial IV PUSH 10 mg Q8H PRN Administration >180 Systolic >100 Diastolic Dextrose 1,000 mls @ 100 mls/hr 03/04/25 22:06 Dextrose 5% 1,000 Ml IVPB PRN PRN Hypoglycemia Protocol Potassium Chloride 40 meq/ 520 mls @ 130 mls/hr 03/07/25 07:22 Sodium Chloride IVPB 03/07/25 11:21 ONCE ONE Insulin Aspart 3 - 6 units 03/05/25 08:00 03/06/25 17:45 Insulin Aspart (*Bkc) 100 Units/Ml SUB-Q 6 units TIDWM [facility] Administration Protocol Insulin Aspart 1 - 3 units 03/05/25 21:00 03/06/25 21:14 Insulin Aspart (*Bkc) 100 Units/Ml SUB-Q 2 units HS [facility] Administration Protocol Insulin Aspart 3 units 03/06/25 17:30 03/06/25 17:45 Insulin Aspart (*Bkc) 100 Units/Ml 0.05 units/kg (3 units) 3 units SUB-Q Administration TIDWM [facility] Insulin Glargine 10 units 03/06/25 21:00 03/06/25 21:14 Insulin Glargine (*Bkc) 100 Units/Ml 0.2 units/kg (10 units) 10 units SUB-Q Administration [facility] Metoprolol Succinate 25 mg 03/06/25 12:30 03/06/25 12:53 Metoprolol Succinate Ext Rel 25 Mg Tabcr PO 25 mg QAM [facility] Administration Mupirocin 1 applic 03/05/25 09:00 03/06/25 09:32 Mupirocin 2% Oint 22 Gm Tube TOPICAL 1 applic DAILY [facility]U Administration Sacubitril/Valsartan 1 tab 03/06/25 12:40 03/06/25 21:14 Sacubitril/Valsartan 24-26 Mg Tablet PO 1 tab Q12HR PHU Administration Spironolactone 25 mg 03/07/25 09:00 Spironolactone 25 Mg Tablet PO QAM [facility] Radiology Results: ITS Impressions Chest X-Ray 03/04/25 17:21 IMPRESSION: 1. Interstitial and airspace opacities in the bilateral mid and lower lung zones which could be due to pulmonary edema, pneumonia, atelectasis or some combination thereof. 2. Small left pleural effusion. Knee X-Ray 03/04/25 17:23 IMPRESSION: 1. No right knee joint effusion or osseous abnormality. Foot X-Ray 03/04/25 17:26 IMPRESSION: 1. Mild degenerative skeletal changes at the left foot. No acute osseous abnormality. Lumbar Spine CT 03/04/25 17:29 IMPRESSION: 1. Acute L1 compression fracture with 20% anterior vertebral body height loss. 2. Mild to moderate lumbar vertebral body height loss most notable for severe central canal stenosis at L4-L5. 3. Bilateral pleural effusions. Chest CTA 03/04/25 21:29 IMPRESSION: No pulmonary embolus. No thoracic aortic dissection. Large bilateral pleural effusions with adjacent atelectasis. Findings suggesting right heart failure, as detailed above. Labs 03/07/25 04:26 03/07/25 05:42 Labs: Laboratory Results - last 24 hr 03/06/25 03/06/25 03/06/25 10:42 12:13 17:02 WBC 6.1 RBC 5.04 Hgb 9.1 L Hct 31.2 L MCV 61.9 L MCH 18.1 L MCHC 29.2 L RDW 18.6 H Plt Count 283 MPV 10.5 H Immature Gran % (Auto) 1.0 H Neut % (Auto) 72.0 Lymph % (Auto) 17.4 L [place] % (Auto) 7.6 Eos % (Auto) 1.8 Baso % (Auto) 0.2 Lymph # (Auto) 1.06 [place] # (Auto) 0.5 Eos # (Auto) 0.1 Baso # (Auto) 0.0 Abs Immat Gran (auto) 0.06 H Absolute Neuts (auto) 4.4 Absolute Nucleated RBC 0.000 Band Neutrophils % Not Reportable Nucleated RBC % 0.0 Platelet Estimate Adequate % Immature Plt Fraction 1.9 Polychromasia Hypochromasia 1+ Microcytosis 2+ Target Cells 1+ Ovalocytes 1+ [place] Cells 1+ Schistocytes None seen Sodium 133 L Potassium 3.3 L Chloride 98 Carbon Dioxide 28 Anion Gap 7 BUN 13 Creatinine 1.13 H Estim Creat Clear Calc Not Reportable Estimated GFR 48 L Glucose 418 H POC Capillary Glucose 389 H 432 H Calcium 8.9 Total Bilirubin 0.5 AST 21 ALT 14 Alkaline Phosphatase 62 NT-Pro-B Natriuret Pep 13181 H Total Protein 5.6 L Albumin 2.7 L 03/06/25 03/07/25 03/07/25 20:46 04:26 05:42 WBC 6.3 RBC 4.82 Hgb 8.8 L Hct 29.9 L MCV 62.0 L MCH 18.3 L MCHC 29.4 L RDW 18.2 H Plt Count 274 MPV TNP Immature Gran % (Auto) 0.6 H Neut % (Auto) 65.4 Lymph % (Auto) 22.1 [place] % (Auto) 9.6 H Eos % (Auto) 2.1 Baso % (Auto) 0.2 Lymph # (Auto) 1.39 [place] # (Auto) 0.6 Eos # (Auto) 0.1 Baso # (Auto) 0.0 Abs Immat Gran (auto) 0.04 H Absolute Neuts (auto) 4.1 Absolute Nucleated RBC 0.000 Band Neutrophils % Not Reportable Nucleated RBC % 0.0 Platelet Estimate Adequate % Immature Plt Fraction 2.3 Polychromasia 1+ Hypochromasia 1+ Microcytosis 2+ Target Cells 1+ Ovalocytes 1+ [place] Cells Schistocytes Rare Sodium 137 Potassium 2.8 L* Chloride 100 Carbon Dioxide 33 H Anion Gap 4 BUN 15 Creatinine 1.03 H Estim Creat Clear Calc Not Reportable Estimated GFR 53 L Glucose 163 H POC Capillary Glucose 305 H Calcium 8.4 Total Bilirubin 0.4 AST 20 ALT 12 Alkaline Phosphatase 48 NT-Pro-B Natriuret Pep Cancelled 41247 H Total Protein 5.1 L Albumin 2.4 L 03/07/25 07:54 WBC RBC Hgb Hct MCV MCH MCHC RDW Plt Count MPV Immature Gran % (Auto) Neut % (Auto) Lymph % (Auto) [place] % (Auto) Eos % (Auto) Baso % (Auto) Lymph # (Auto) [place] # (Auto) Eos # (Auto) Baso # (Auto) Abs Immat Gran (auto) Absolute Neuts (auto) Absolute Nucleated RBC Band Neutrophils % Nucleated RBC % Platelet Estimate % Immature Plt Fraction Polychromasia Hypochromasia Microcytosis Target Cells Ovalocytes [place] Cells Schistocytes Sodium Potassium Chloride Carbon Dioxide Anion Gap BUN Creatinine Estim Creat Clear Calc Estimated GFR Glucose POC Capillary Glucose 135 H Calcium Total Bilirubin AST ALT Alkaline Phosphatase NT-Pro-B Natriuret Pep Total Protein Albumin ASA Classification/Sedation ASA Classification/Sedation ASA Class: III Emergent: No Risks: Risks, benefits and alternatives explained and patient/family accepted plan for sedation. Patient re-evaluated immediately prior to sedation.
[2025-03-07] MEDS: POTASSIUM CHLORIDE INJ 40 MEQ in SODIUM CHLORIDE 0.9% IV 500 ML 130 MEQ IVPB (09:16)
[2025-03-07] MEDS: METOPROLOL SUCCINATE EXT REL 25 MG TABCR PO (09:20)
[2025-03-07] MEDS: SACUBITRIL/VALSARTAN 24-26 MG TABLET 1 TAB PO (09:20)
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
[2025-03-07 12:22] LABS: Glucose Point of Care 157 mg/dl (65-105)
[2025-03-07] MEDS: MUPIROCIN 2% OINT 22 GM TUBE 1 APPLIC TOPICAL (12:42)
--- NOTE | 2025-03-07 15:17 | WPDCARDPROC ---
Cardiac Cath Procedure Note Date of procedure:: 03/07/25 Performing physician:: CATHETERIZATION LABORATORY REPORT Procedure Date: 03/07/2025 Referring Physician: Monica Skinner Anesthesia: Versed and Fentanyl were ordered and given in my presence at 1432, procedure ended at 1451. Supervision of nurse, Vandana West monitored moderate sedation with 0mg Versed and 50mcg Fentanyl was provided for 19 minutes. Pre-op Diagnosis: Systolic heart failure Post-op Diagnosis: Systolic heart failure Procedure(s): Left heart catheterization with coronary angiography Access Site: Right radial artery Brief History and Clinical Indications: 61-year-old woman with hypertension, diabetes, and hyperlipidemia who presented with a fall found to have lower extremity swelling and new onset acute systolic heart failure is now euvolemic on guideline directed medical therapy here to define her coronary anatomy with possible PCI. All risks, benefits and alternatives to left heart catheterization with or without percutaneous coronary intervention was discussed at length with the patient. Risk of complications including but not limited to bleeding, infection, arrhythmia, stroke, worsening kidney function, blood loss, groin hematoma, limb loss, emergency coronary artery bypass grafting, and even were discussed with the patient and all questions were answered. The patient understood and wished to proceed. Time out called, patient name, date of , medical record number, allergies, procedure performed, identify [employer] Developer, patient and staff member concurred with accurate data, procedure carried on. Findings: LEFT HEART CATHETERIZATION FINDINGS: 1. Left main: The left main coronary artery has moderately calcified 10-20% stenosis. 2. Left anterior descending: The LAD provides an arcade of small diagonals. The LAD in its mid body has a long area of 50-70% severely calcified stenosis. 3. Left circumflex: The left circumflex artery has diffuse 30-40% stenosis. OM1 has 30 40% stenosis. OM2 is a small caliber vessel supplying a small territory. OM3 has a long diffuse 70% stenosis. 4. Right coronary artery: The RCA is a large dominant vessel with 20-30% diffuse severely calcified stenosis. The right PDA has 10-20% diffuse stenosis. The right PL branch has a long diffuse 80-90% stenosis. There appears to be some small collaterals supply from the [id number] system. 5. Left ventricle: A. End-diastolic pressure 43 mmHg. B. LV gram deferred. C. No significant gradient across aortic valve on catheter pullback. 6. Opening AO pressure 167/111 and closing AO pressure 197/96 Description of Procedure: Informed consent signed and placed in the chart. Patient transferred to laborer drying department room. Prepped and draped in usual sterile fashion. 2% lidocaine injected subcutaneously in right wrist area. 22-gauge venipuncture catheter used to access the right radial artery with the Seldinger technique. 6-FR slender sheath placed in right radial artery. Nitroglycerin 200mcg, Verapamil 2.5mg, and Heparin 2500U was given intraarterial through the sheath. J wire advanced under fluoroscopy 5F JL3.5 diagnostic catheter engaged Left Main Coronary Artery. 5F JR4 diagnostic catheter engaged Right Coronary Artery Multiple orthogonal angiogram obtained and reviewed 5F Pigtail catheter crossed aortic valve to obtain LVEDP, LV angiogram deferred. Hemostasis was achieved by application of TR band. Assessment: Multivessel coronary artery disease Post Operative Condition: Stable No significant blood loss Disposition: Floor Plan: Will optimize her medical regimen follow-up outpatient clinic for evaluation of bypass surgery. Nishant Romeo Interventional Cardiology
--- NOTE | 2025-03-07 17:42 | SUR.PHASEII ---
Pt moved to rm 212 by bed. CCL RN to continue recovery
[2025-03-07] MEDS: ATORVASTATIN 40 MG TABLET 80 MG PO (19:13)
[2025-03-07] MEDS: SODIUM CHLORIDE 0.9% IV 1,000 ML 125 ML IV CONT (19:13)
[2025-03-07] MEDS: SACUBITRIL/VALSARTAN 49-51 MG TABLET 1 TABLET PO (21:28)
[2025-03-07] MEDS: INSULIN GLARGINE (*BKC) 100 UNITS/ML 10 UNITS SUB-Q (21:32)
[2025-03-08] VITALS (16 sets, daily range): BP systolic 144–175; BP diastolic 71–76; PULSE 72–95; RESP 16–18; TEMP 36.4–37.2; O2SAT 94–100
[2025-03-08 00:49] LABS: Glucose Point of Care 258 mg/dl (65-105)
[2025-03-08 04:57] LABS: Eosinophils Absolute Auto 0.1 K/mm3 (0-0.3); Hematocrit 29.3 % (37.0-47.0); Hemoglobin 8.5 g/dL (12.0-15.0); Immature Granulocyte Absolute 0.02 K/mm3 (0.00-0.031); Immature Granulocyte Percent A 0.3 % (0-0.5); Immature Platelet Fraction Pct 1.9 % (0.9-11.2); Lymphocytes Absolute Auto 1.19 K/mm3 (0.9-3.2); Mean Corpuscular Hemoglobin 18.1 pg (26-34); Mean Corpuscular Volume 62.5 fl (80-100); Monocytes Absolute Auto 0.5 K/mm3 (0.1-0.6); Monocytes Percent Auto 9.1 % (2.6-8.5); Neutrophils Absolute Auto 4.1 K/mm3 (1.3-6.7); Neutrophils Percent Auto 69.6 % (45.5-73.1); Platelet Count Result 289 k/mm3 (150-375); Red Blood Count 4.69 M/mm3 (4.2-5.4); Red Cell Distribution Width 18.1 % (11.5-14.5)
[2025-03-08 05:11] LABS: Alanine Aminotransferase 12 U/L (6-35); Albumin Level 2.5 g/dL (3.5-5.1); Alkaline Phosphatase 50 U/L (38-126); Anion Gap 7 mmol/L (4-12); Aspartate Amino Transferase 20 U/L (14-36); Bilirubin,Total 0.4 mg/dL (0.2-1.3); Blood Urea Nitrogen 16 mg/dL (7-17); Carbon Dioxide 26 mmol/L (22-30); Chloride 104 mmol/L (98-107); Estimated Glomerular Filt Rate 56; Glucose 177 mg/dL (65-110); Potassium 3.1 mmol/L (3.4-5.0); Sodium 137 mmol/L (137-145); Total Protein 5.2 g/dL (6.3-8.2)
[2025-03-08 05:16] LABS: NT Pro B Type Natriuretic Pept 13000 pg/mL (19.9-100)
[2025-03-08 05:20] LABS: Anisocytosis 2+; Band Neutrophils Percent 0 % (0-6); Hypochromasia 1+; Microcytosis 1+ (NORMAL); Ovalocytes 1+; Platelet Estimate Slightly Decreased (Adequate)
[2025-03-08 05:21] LABS: Schistocytes None Seen
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
[2025-03-08] MEDS: METOPROLOL SUCCINATE EXT REL 25 MG TABCR PO (08:55)
[2025-03-08] MEDS: INSULIN ASPART (*BKC) 100 UNITS/ML SUB-Q ×4 (08:55→20:54)
[2025-03-08] MEDS: ENOXAPARIN 40 MG/0.4 ML SYRINGE SUB-Q (08:56)
[2025-03-08] MEDS: EMPAGLIFLOZIN 25 MG TABLET BY MOUTH (08:56)
[2025-03-08] MEDS: MUPIROCIN 2% OINT 22 GM TUBE 1 APPLIC TOPICAL (08:56)
[2025-03-08] MEDS: SPIRONOLACTONE 25 MG TABLET PO (08:56)
[2025-03-08] MEDS: SACUBITRIL/VALSARTAN 49-51 MG TABLET 1 TABLET PO ×2 (08:56→20:49)
[2025-03-08 11:43] LABS: Glucose Point of Care 351 mg/dl (65-105)
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
[2025-03-08] MEDS: POTASSIUM CHLORIDE 20 MEQ ER TABLET 40 MEQ PO (11:59)
[2025-03-08] MEDS: POTASSIUM CHLORIDE INJ 40 MEQ in SODIUM CHLORIDE 0.9% IV 500 ML 130 MEQ IVPB (12:03)
--- NOTE | 2025-03-08 12:55 | P.PNCA_ITS ---
Progress Note: A&P Assessment and Plan (1) Acute heart failure: Code(s): I50.9 - Heart failure, unspecified Status: Acute Plan 69-year-old woman with diabetes, hypertension, and hyperlipidemia presented with mechanical fall found to be in acute decompensated systolic heart failure Acute decompensated systolic heart failure of new onset (EF 35-40%) -she is now euvolemic after diuresis -continue Entresto 24-26 mg p.o. b.i.d. -continue metoprolol succinate 25 mg p.o. daily -she is already on Jardiance for diabetes -add spironolactone 25 mg daily Hypertension -likely will be better control on Entresto 24-26 mg p.o. b.i.d. -adding spironolactone Hyperlipidemia -continue atorvastatin 20 mg every evening Coronary artery disease -found to have multivessel coronary artery disease by coronary angiogram yesterday -discussed plan for medical management and outpatient consultation with Cardiothoracic surgery for possible CABG Spoke with the patient and via sign language interpreter about the above findings. Called the son to discuss plan as well and he verbalizes understanding of everything discussed. Subjective Date/time seen: 03/08/25 12:55 Interval history: Cardiology follow-up visit Date of service 03/08/2025: Spoke with the patient and patient's via sign language interpreter ([id number]). Patient is feeling well today denies any chest pain, shortness of breath. We discussed results of her cardiac catheterization yesterday and recommendation for outpatient cardiac surgery evaluation for possible CABG. Review of Systems Review of Systems: All systems reviewed & are unremarkable except as noted in HPI and below Cardiovascular: Cardiovascular: Reports as per HPI Respiratory: Respiratory: Reports as per HPI Exam Const: General: comfortable HENMT: Mouth: Yes moist mucous membranes Eyes: EOM: EOMs intact bilaterally Neck: Neck: no JVD Resp: Effort & Inspection: normal respiratory effort Auscultation: clear to auscultation bilaterally Cardio: Rate: regular rate Rhythm: regular rhythm Extrem: General: no pedal edema Other: Right radial access site free from hematoma. Right radial pulse intact. Psych: Appearance: grossly normal Mental Status: mental status grossly normal Objective Data Vital Signs Vital Signs: Vital Signs - 24 hr 03/07/25 15:00 03/07/25 15:00 03/07/25 15:15 Temperature Pulse Rate 72 72 Pulse Rate [Bilateral Palpation] 72 Respiratory Rate 18 16 Blood Pressure 143/74 H 141/79 H Pulse Oximetry 90 90 Oxygen Delivery Room Air Room Air 03/07/25 15:15 03/07/25 15:30 03/07/25 15:30 Temperature Pulse Rate 78 Pulse Rate [Bilateral Palpation] 72 78 Respiratory Rate 20 Blood Pressure 159/88 H Pulse Oximetry 90 Oxygen Delivery Room Air 03/07/25 15:45 03/07/25 15:45 03/07/25 16:00 Temperature Pulse Rate 75 80 Pulse Rate [Bilateral Palpation] 78 Respiratory Rate 18 16 Blood Pressure 129/78 131/71 Pulse Oximetry 92 93 Oxygen Delivery Room Air Room Air 03/07/25 16:00 03/07/25 16:15 03/07/25 16:15 Temperature Pulse Rate 77 Pulse Rate [Bilateral Palpation] 80 77 Respiratory Rate 17 Blood Pressure 137/75 Pulse Oximetry 92 Oxygen Delivery Room Air 03/07/25 16:30 03/07/25 16:30 03/07/25 16:45 Temperature Pulse Rate 76 72 Pulse Rate [Bilateral Palpation] 76 Respiratory Rate 16 18 Blood Pressure 151/71 H 142/69 H Pulse Oximetry 93 94 Oxygen Delivery Room Air Room Air 03/07/25 16:45 03/07/25 17:00 03/07/25 17:00 Temperature Pulse Rate 74 Pulse Rate [Bilateral Palpation] 76 74 Respiratory Rate 16 Blood Pressure 141/71 H Pulse Oximetry 95 Oxygen Delivery Room Air 03/07/25 17:15 03/07/25 17:15 03/07/25 17:30 Temperature Pulse Rate 73 Pulse Rate [Bilateral Palpation] 73 78 Respiratory Rate 16 Blood Pressure 146/72 H Pulse Oximetry 94 Oxygen Delivery Room Air 03/07/25 17:30 03/07/25 17:45 03/07/25 17:45 Temperature Pulse Rate 78 80 Pulse Rate [Bilateral Palpation] 80 Respiratory Rate 17 22 H Blood Pressure 153/71 H 143/79 H Pulse Oximetry 96 96 Oxygen Delivery Room Air Room Air 03/07/25 18:00 03/07/25 18:00 03/07/25 18:19 Temperature Pulse Rate 81 Pulse Rate [Bilateral Palpation] 81 81 Respiratory Rate 20 Blood Pressure 147/72 H Pulse Oximetry 96 Oxygen Delivery Room Air 03/07/25 18:30 03/07/25 19:00 03/07/25 20:00 Temperature 37.0 C 36.9 C Pulse Rate 83 86 91 Pulse Rate [Bilateral Palpation] Respiratory Rate 16 16 Blood Pressure 128/63 147/72 H Pulse Oximetry 97 97 Oxygen Delivery 03/07/25 22:00 03/07/25 22:00 03/08/25 00:00 Temperature Pulse Rate 94 91 90 Pulse Rate [Bilateral Palpation] Respiratory Rate 17 Blood Pressure 170/79 H Pulse Oximetry 94 Oxygen Delivery 03/08/25 00:00 03/08/25 00:01 03/08/25 02:00 Temperature 36.4 C L Pulse Rate 95 83 Pulse Rate [Bilateral Palpation] Respiratory Rate 17 Blood Pressure 170/73 H Pulse Oximetry 94 Oxygen Delivery Room Air 03/08/25 03:59 03/08/25 04:00 03/08/25 04:00 Temperature 36.6 C Pulse Rate 85 78 Pulse Rate [Bilateral Palpation] Respiratory Rate 17 Blood Pressure 161/72 H Pulse Oximetry 100 Oxygen Delivery Room Air 03/08/25 05:44 03/08/25 06:00 03/08/25 06:00 Temperature Pulse Rate 82 82 75 Pulse Rate [Bilateral Palpation] Respiratory Rate 17 17 Blood Pressure 148/71 H 148/71 H Pulse Oximetry 94 94 Oxygen Delivery 03/08/25 07:57 03/08/25 08:55 03/08/25 11:50 Temperature 36.7 C 36.6 C Pulse Rate 84 94 76 Pulse Rate [Bilateral Palpation] Respiratory Rate 16 18 Blood Pressure 175/75 H 169/71 H Pulse Oximetry 96 98 Oxygen Delivery Intake/Output Intake/Output: Intake & Output 03/05/25 03/06/25 03/07/25 03/08/25 23:59 23:59 23:59 23:59 Intake Total 1070 115 995 4570 Output Total 3800 2600 300 300 Balance -2730 -1660 -100 940 Meds/Results Medications: Active Medications Generic Name Dose Route Start Last Admin Trade Name Freq PRN Reason Stop Dose Admin Atorvastatin Calcium 80 mg 03/07/25 18:00 03/07/25 19:13 Atorvastatin 40 Mg Tablet PO 80 mg QPM PHU Administration Dextrose 12.5 gm 03/04/25 22:06 Dextrose 50% 25 Gm/50 Ml Syringe IV PUSH PRN PRN Hypoglycemia Protocol Empagliflozin 25 mg 03/05/25 09:00 03/08/25 08:56 Empagliflozin 25 Mg Tablet BY MOUTH 25 mg DAILY PHU Administration Enoxaparin Sodium 40 mg 03/06/25 09:00 03/08/25 08:56 Enoxaparin 40 Mg/0.4 Ml Syringe SUB-Q 40 mg DAILY PHU Administration Glucagon 1 mg 03/04/25 22:06 Glucagon For Inj 1 Mg Vial IM PRN PRN Hypoglycemia Protocol Glucose 15 gm 03/04/25 22:06 Glucose Oral Gel 15 Gm Of Glucse In 37.5 Gm Tube PO PRN PRN Hypoglycemia Protocol Hydralazine HCl 10 mg 03/05/25 10:24 03/05/25 12:18 Hydralazine Hcl 20 Mg/Ml Vial IV PUSH 10 mg Q8H PRN Administration >180 Systolic >100 Diastolic Dextrose 1,000 mls @ 100 mls/hr 03/04/25 22:06 Dextrose 5% 1,000 Ml IVPB PRN PRN Hypoglycemia Protocol Potassium Chloride 40 meq/ 520 mls @ 130 mls/hr 03/08/25 10:33 03/08/25 12:03 Sodium Chloride IVPB 03/08/25 14:32 130 mls/hr ONCE ONE Administration Insulin Aspart 3 - 6 units 03/05/25 08:00 03/08/25 11:59 Insulin Aspart (*Bkc) 100 Units/Ml SUB-Q 6 units TIDWM PHU Administration Protocol Insulin Aspart 1 - 3 units 03/05/25 21:00 03/07/25 22:02 Insulin Aspart (*Bkc) 100 Units/Ml SUB-Q Not Given HS [facility] Protocol Insulin Aspart 3 units 03/06/25 17:30 03/08/25 12:00 Insulin Aspart (*Bkc) 100 Units/Ml 0.05 units/kg (3 units) 3 units SUB-Q Administration TIDWM [facility] Insulin Glargine 10 units 03/06/25 21:00 03/07/25 21:32 Insulin Glargine (*Bkc) 100 Units/Ml 0.2 units/kg (10 units) 10 units SUB-Q Administration HS [facility] Metoprolol Succinate 25 mg 03/06/25 12:30 03/08/25 08:55 Metoprolol Succinate Ext Rel 25 Mg Tabcr PO 25 mg QAM PHU Administration Mupirocin 1 applic 03/05/25 09:00 03/08/25 08:56 Mupirocin 2% Oint 22 Gm Tube TOPICAL 1 applic DAILY PHU Administration Sacubitril/Valsartan 1 tablet 03/07/25 21:00 03/08/25 08:56 Sacubitril/Valsartan 49-51 Mg Tablet PO 1 tablet Q12HR PHU Administration Spironolactone 25 mg 03/07/25 09:00 03/08/25 08:56 Spironolactone 25 Mg Tablet PO 25 mg QAM PHU Administration Radiology Results: ITS Impressions Chest X-Ray 03/04/25 17:21 IMPRESSION: 1. Interstitial and airspace opacities in the bilateral mid and lower lung zones which could be due to pulmonary edema, pneumonia, atelectasis or some combination thereof. 2. Small left pleural effusion. Knee X-Ray 03/04/25 17:23 IMPRESSION: 1. No right knee joint effusion or osseous abnormality. Foot X-Ray 03/04/25 17:26 IMPRESSION: 1. Mild degenerative skeletal changes at the left foot. No acute osseous abnormality. Lumbar Spine CT 03/04/25 17:29 IMPRESSION: 1. Acute L1 compression fracture with 20% anterior vertebral body height loss. 2. Mild to moderate lumbar vertebral body height loss most notable for severe central canal stenosis at L4-L5. 3. Bilateral pleural effusions. Chest CTA 03/04/25 21:29 IMPRESSION: No pulmonary embolus. No thoracic aortic dissection. Large bilateral pleural effusions with adjacent atelectasis. Findings suggesting right heart failure, as detailed above. Labs Labs: Laboratory Results - last 24 hr 03/08/25 03/08/25 03/08/25 00:44 04:17 11:21 WBC 6.0 RBC 4.69 Hgb 8.5 L Hct 29.3 L MCV 62.5 L MCH 18.1 L MCHC 29.0 L RDW 18.1 H Plt Count 289 MPV TNP Immature Gran % (Auto) 0.3 Neut % (Auto) 69.6 Lymph % (Auto) 20.0 [place] % (Auto) 9.1 H Eos % (Auto) 1.0 Baso % (Auto) 0.0 L Lymph # (Auto) 1.19 [place] # (Auto) 0.5 Eos # (Auto) 0.1 Baso # (Auto) 0.0 Abs Immat Gran (auto) 0.02 Absolute Neuts (auto) 4.1 Absolute Nucleated RBC 0.000 Band Neutrophils % 0 Nucleated RBC % 0.0 Platelet Estimate Slightly decreased % Immature Plt Fraction 1.9 Hypochromasia 1+ Anisocytosis 2+ Microcytosis 1+ Ovalocytes 1+ Schistocytes None seen Sodium 137 Potassium 3.1 L Chloride 104 Carbon Dioxide 26 Anion Gap 7 BUN 16 Creatinine 0.98 Estim Creat Clear Calc Not Reportable Estimated GFR 56 L Glucose 177 H POC Capillary Glucose 258 H 351 H Calcium 8.0 L Total Bilirubin 0.4 AST 20 ALT 12 Alkaline Phosphatase 50 NT-Pro-B Natriuret Pep 63458 H Total Protein 5.2 L Albumin 2.5 L Quality VTE Prophylaxis VTE prophylaxis: pharmacologic ordered
[2025-03-08 15:46] LABS: Glucose Point of Care 347 mg/dl (65-105)
[2025-03-08] MEDS: ATORVASTATIN 40 MG TABLET 80 MG PO (17:03)
[2025-03-08] MEDS: oxyCODONE HCL (*CRX) 5 MG TAB IR PO (17:05)
[2025-03-08 20:00] LABS: Glucose Point of Care 291 mg/dl (65-105)
[2025-03-08] MEDS: INSULIN GLARGINE (*BKC) 100 UNITS/ML 10 UNITS SUB-Q (20:53)
[2025-03-09] VITALS (8 sets, daily range): BP systolic 150–156; BP diastolic 78–82; PULSE 74–81; RESP 18; TEMP 36.6–36.8; O2SAT 96–99
[2025-03-09] MEDS: oxyCODONE HCL (*CRX) 5 MG TAB IR PO ×3 (03:44→16:50)
[2025-03-09 05:11] LABS: Eosinophils Absolute Auto 0.1 K/mm3 (0-0.3); Eosinophils Percent Auto 2.3 % (0-4.4); Hematocrit 27.4 % (37.0-47.0); Hemoglobin 7.9 g/dL (12.0-15.0); Immature Granulocyte Absolute 0.03 K/mm3 (0.00-0.031); Immature Granulocyte Percent A 0.5 % (0-0.5); Lymphocytes Absolute Auto 1.63 K/mm3 (0.9-3.2); Lymphocytes Percent Auto 26.3 % (18.3-44.2); Mean Corpuscular HGB Conc 28.8 g/dl (32-36); Mean Corpuscular Hemoglobin 18.2 pg (26-34); Mean Corpuscular Volume 63.1 fl (80-100); Mean Platelet Volume 9.3 fl (7.4-10.4); Monocytes Absolute Auto 0.5 K/mm3 (0.1-0.6); Monocytes Percent Auto 8.6 % (2.6-8.5); Neutrophils Absolute Auto 3.9 K/mm3 (1.3-6.7); Neutrophils Percent Auto 62.3 % (45.5-73.1); Platelet Count Result 287 k/mm3 (150-375); Red Blood Count 4.34 M/mm3 (4.2-5.4); Red Cell Distribution Width 18.1 % (11.5-14.5); White Blood Count 6.2 K/mm3 (4.5-10.0)
[2025-03-09 05:29] LABS: Alanine Aminotransferase 14 U/L (6-35); Albumin Level 2.5 g/dL (3.5-5.1); Alkaline Phosphatase 50 U/L (38-126); Anion Gap 5 mmol/L (4-12); Aspartate Amino Transferase 22 U/L (14-36); Bilirubin,Total 0.3 mg/dL (0.2-1.3); Blood Urea Nitrogen 14 mg/dL (7-17); Calcium 7.9 mg/dL (8.4-10.2); Carbon Dioxide 25 mmol/L (22-30); Chloride 106 mmol/L (98-107); Estimated Glomerular Filt Rate 55; Glucose 240 mg/dL (65-110); Potassium 4.2 mmol/L (3.4-5.0); Sodium 136 mmol/L (137-145); Total Protein 5.2 g/dL (6.3-8.2)
[2025-03-09 05:34] LABS: NT Pro B Type Natriuretic Pept 12000 pg/mL (19.9-100)
[2025-03-09 05:56] LABS: Anisocytosis 2+; Ovalocytes 2+; Platelet Estimate Adequate (Adequate)
[2025-03-09 05:57] LABS: Hypochromasia 2+; Schistocytes 2+
[2025-03-09 08:00] LABS: Glucose Point of Care 184 mg/dl (65-105)
[2025-03-09] MEDS: SPIRONOLACTONE 25 MG TABLET PO (10:15)
[2025-03-09] MEDS: ENOXAPARIN 40 MG/0.4 ML SYRINGE SUB-Q (10:15)
[2025-03-09] MEDS: MUPIROCIN 2% OINT 22 GM TUBE 1 APPLIC TOPICAL (10:15)
[2025-03-09] MEDS: EMPAGLIFLOZIN 25 MG TABLET BY MOUTH (10:15)
[2025-03-09] MEDS: SACUBITRIL/VALSARTAN 49-51 MG TABLET 1 TABLET PO (10:15)
[2025-03-09] MEDS: METOPROLOL SUCCINATE EXT REL 25 MG TABCR PO (10:15)
[2025-03-09] MEDS: INSULIN ASPART (*BKC) 100 UNITS/ML SUB-Q ×3 (10:16→12:45)
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
[2025-03-09] MEDS: POLYSACCHARIDE IRON COMPLEX 150 MG CAPSULE PO (12:10)
[2025-03-09 12:47] LABS: Glucose Point of Care 280 mg/dl (65-105)
--- NOTE | 2025-03-09 17:10 | P.PNCA_ITS ---
Progress Note: A&P Assessment and Plan (1) Congestive heart failure (CHF): Qualifiers: Heart failure type: systolic Heart failure chronicity: acute Qualified Code(s): I50.21 - Acute systolic (congestive) heart failure Code(s): I50.9 - Heart failure, unspecified Status: Acute (2) Coronary artery disease: Code(s): I25.10 - Atherosclerotic heart disease of [place] coronary artery without angina pectoris Status: Acute (3) Coronary artery disease due to type 2 diabetes mellitus: Code(s): E11.59 - Type 2 diabetes mellitus with other circulatory complications; I25.10 - Atherosclerotic heart disease of [place] coronary artery without angina pectoris Status: Acute (4) Hyperlipidemia associated with type 2 diabetes mellitus: Code(s): E11.69 - Type 2 diabetes mellitus with other specified complication; E78.5 - Hyperlipidemia, unspecified Status: Acute Plan 69-year-old woman with diabetes, hypertension, and hyperlipidemia presented with mechanical fall found to be in acute decompensated systolic heart failure Acute decompensated systolic heart failure of new onset (EF 35-40%) -she is now euvolemic after diuresis -continue Entresto 49-51 mg p.o. b.i.d., metoprolol succinate 25 mg p.o. daily, and spironolactone 25mg PO daily -she is already on Jardiance for diabetes Coronary artery disease -her anatomy was defined on cardiac catheterization and given multivessel CAD, CT surgery consultation was provided and outpatient setup was created Hypertension -will continue to optimize in outpatient setting Hyperlipidemia -continue atorvastatin 80 mg every evening Patient will follow-up with me in Cardiac Clinic as well as CT surgery clinic Subjective Date/time seen: 03/09/25 17:10 Interval history: Denies chest pain and shortness of breath. Discussed with son and family and patient her heart failure as well as coronary artery disease. All questions were answered. Family and patient expressed understanding. Review of Systems Cardiovascular: Cardiovascular: Reports as per HPI Respiratory: Respiratory: Reports as per HPI Exam Const: General: comfortable HENMT: Mouth: Yes moist mucous membranes Eyes: EOM: EOMs intact bilaterally Neck: Neck: no JVD Resp: Effort & Inspection: normal respiratory effort Auscultation: clear to auscultation bilaterally Cardio: Rate: regular rate Rhythm: regular rhythm Extrem: General: no pedal edema Objective Data Vital Signs Vital Signs: Vital Signs - 24 hr 03/08/25 20:00 03/08/25 20:00 03/08/25 20:14 Temperature 36.8 C Pulse Rate 72 79 Respiratory Rate 18 Blood Pressure 144/72 H Pulse Oximetry 99 Oxygen Delivery Room Air 03/09/25 00:00 03/09/25 04:00 03/09/25 04:00 Temperature 36.6 C Pulse Rate 74 79 78 Respiratory Rate 18 Blood Pressure 156/82 H Pulse Oximetry 99 Oxygen Delivery 03/09/25 08:00 03/09/25 08:09 03/09/25 10:00 Temperature 36.8 C Pulse Rate 79 77 80 Respiratory Rate 18 Blood Pressure 150/78 H Pulse Oximetry 96 Oxygen Delivery 03/09/25 10:15 03/09/25 12:00 03/09/25 16:00 Temperature Pulse Rate 81 80 76 Respiratory Rate Blood Pressure Pulse Oximetry Oxygen Delivery Intake/Output Intake/Output: Intake & Output 03/06/25 03/07/25 03/08/25 03/09/25 23:59 23:59 23:59 23:59 Intake Total 503 672 1582 830 Output Total 2600 189 888 6858 Balance -1660 -100 1220 -270 Meds/Results Medications: Active Medications Generic Name Dose Route Start Last Admin Trade Name Freq PRN Reason Stop Dose Admin Atorvastatin Calcium 80 mg 03/07/25 18:00 03/08/25 17:03 Atorvastatin 40 Mg Tablet PO 80 mg QPM PHU Administration Dextrose 12.5 gm 03/04/25 22:06 Dextrose 50% 25 Gm/50 Ml Syringe IV PUSH PRN PRN Hypoglycemia Protocol Docusate Sodium 100 mg 03/09/25 10:21 Docusate Sodium 100 Mg Capsule PO Q12H PRN Constipation Empagliflozin 25 mg 03/05/25 09:00 03/09/25 10:15 Empagliflozin 25 Mg Tablet BY MOUTH 25 mg DAILY PHU Administration Enoxaparin Sodium 40 mg 03/06/25 09:00 03/09/25 10:15 Enoxaparin 40 Mg/0.4 Ml Syringe SUB-Q 40 mg DAILY PHU Administration Glucagon 1 mg 03/04/25 22:06 Glucagon For Inj 1 Mg Vial IM PRN PRN Hypoglycemia Protocol Glucose 15 gm 03/04/25 22:06 Glucose Oral Gel 15 Gm Of Glucse In 37.5 Gm Tube PO PRN PRN Hypoglycemia Protocol Hydralazine HCl 10 mg 03/05/25 10:24 03/05/25 12:18 Hydralazine Hcl 20 Mg/Ml Vial IV PUSH 10 mg Q8H PRN Administration >180 Systolic >100 Diastolic Dextrose 1,000 mls @ 100 mls/hr 03/04/25 22:06 Dextrose 5% 1,000 Ml IVPB PRN PRN Hypoglycemia Protocol Insulin Aspart 3 - 6 units 03/05/25 08:00 03/09/25 12:45 Insulin Aspart (*Bkc) 100 Units/Ml SUB-Q 4 units TIDWM [facility] Administration Protocol Insulin Aspart 1 - 3 units 03/05/25 21:00 03/08/25 20:54 Insulin Aspart (*Bkc) 100 Units/Ml SUB-Q 2 units HS [facility] Administration Protocol Insulin Aspart 3 units 03/06/25 17:30 03/09/25 12:11 Insulin Aspart (*Bkc) 100 Units/Ml 0.05 units/kg (3 units) 3 units SUB-Q Administration TIDWM [facility] Insulin Glargine 10 units 03/06/25 21:00 03/08/25 20:53 Insulin Glargine (*Bkc) 100 Units/Ml 0.2 units/kg (10 units) 10 units SUB-Q Administration [facility] Metoprolol Succinate 25 mg 03/06/25 12:30 03/09/25 10:15 Metoprolol Succinate Ext Rel 25 Mg Tabcr PO 25 mg QAM [facility] Administration Mupirocin 1 applic 03/05/25 09:00 03/09/25 10:15 Mupirocin 2% Oint 22 Gm Tube TOPICAL 1 applic DAILY [facility] Administration Oxycodone HCl 5 mg 03/08/25 16:24 03/09/25 16:50 Oxycodone Hcl (*Crx) 5 Mg Tab Ir PO 5 mg Q4H PRN Administration Pain Rated 7-10 Polysaccharide Iron Complex 150 mg 03/09/25 08:00 03/09/25 12:10 Polysaccharide Iron Complex 150 Mg Capsule PO 150 mg DAILY@0800 [facility] Administration Sacubitril/Valsartan 1 tab 03/09/25 21:00 Sacubitril/Valsartan 97-103 Mg Tablet PO Q12HR [facility] Spironolactone 25 mg 03/07/25 09:00 03/09/25 10:15 Spironolactone 25 Mg Tablet PO 25 mg QAM PHU Administration Radiology Results: ITS Impressions Chest X-Ray 03/04/25 17:21 IMPRESSION: 1. Interstitial and airspace opacities in the bilateral mid and lower lung zones which could be due to pulmonary edema, pneumonia, atelectasis or some combination thereof. 2. Small left pleural effusion. Knee X-Ray 03/04/25 17:23 IMPRESSION: 1. No right knee joint effusion or osseous abnormality. Foot X-Ray 03/04/25 17:26 IMPRESSION: 1. Mild degenerative skeletal changes at the left foot. No acute osseous abnormality. Lumbar Spine CT 03/04/25 17:29 IMPRESSION: 1. Acute L1 compression fracture with 20% anterior vertebral body height loss. 2. Mild to moderate lumbar vertebral body height loss most notable for severe central canal stenosis at L4-L5. 3. Bilateral pleural effusions. Chest CTA 03/04/25 21:29 IMPRESSION: No pulmonary embolus. No thoracic aortic dissection. Large bilateral pleural effusions with adjacent atelectasis. Findings suggesting right heart failure, as detailed above. Labs Labs: Laboratory Results - last 24 hr 03/08/25 03/09/25 03/09/25 19:48 04:35 07:42 WBC 6.2 RBC 4.34 Hgb 7.9 L Hct 27.4 L MCV 63.1 L MCH 18.2 L MCHC 28.8 L RDW 18.1 H Plt Count 287 MPV 9.3 Immature Gran % (Auto) 0.5 Neut % (Auto) 62.3 Lymph % (Auto) 26.3 [place] % (Auto) 8.6 H Eos % (Auto) 2.3 Baso % (Auto) 0.0 L Lymph # (Auto) 1.63 [place] # (Auto) 0.5 Eos # (Auto) 0.1 Baso # (Auto) 0.0 Abs Immat Gran (auto) 0.03 Absolute Neuts (auto) 3.9 Absolute Nucleated RBC 0.000 Band Neutrophils % Not Reportable Nucleated RBC % 0.0 Platelet Estimate Adequate % Immature Plt Fraction 2.0 Hypochromasia 2+ Anisocytosis 2+ Ovalocytes 2+ Schistocytes 2+ Sodium 136 L Potassium 4.2 Chloride 106 Carbon Dioxide 25 Anion Gap 5 BUN 14 Creatinine 1.01 H Estim Creat Clear Calc Not Reportable Estimated GFR 55 L Glucose 240 H POC Capillary Glucose 291 H 184 H Calcium 7.9 L Total Bilirubin 0.3 AST 22 ALT 14 Alkaline Phosphatase 50 NT-Pro-B Natriuret Pep 69392 H Total Protein 5.2 L Albumin 2.5 L 03/09/25 12:23 WBC RBC Hgb Hct MCV MCH MCHC RDW Plt Count MPV Immature Gran % (Auto) Neut % (Auto) Lymph % (Auto) [place] % (Auto) Eos % (Auto) Baso % (Auto) Lymph # (Auto) [place] # (Auto) Eos # (Auto) Baso # (Auto) Abs Immat Gran (auto) Absolute Neuts (auto) Absolute Nucleated RBC Band Neutrophils % Nucleated RBC % Platelet Estimate % Immature Plt Fraction Hypochromasia Anisocytosis Ovalocytes Schistocytes Sodium Potassium Chloride Carbon Dioxide Anion Gap BUN Creatinine Estim Creat Clear Calc Estimated GFR Glucose POC Capillary Glucose 280 H Calcium Total Bilirubin AST ALT Alkaline Phosphatase NT-Pro-B Natriuret Pep Total Protein Albumin
== END 2025-03-09 16:52 | disposition home or self-care (01) | DRG 286 ==
LOC: ANHED 19:38 → ANH2MED 22:49 → ANHIMU 03-07 15:11
PROVIDERS: Internal Medicine; Physician Assistant; Admitting Provider Internal Medicine; Emergency Provider Student in an Organized Health Care Education/Training Program; PCP Family Medicine; Visit Provider Internal Medicine
PROC: 4A023N7 Measurement of Cardiac Sampling and Pressure, Left Heart, Percutaneous Approach (ICD-10-PCS; CPT 93452; principal; 2025-03-07 11:00)
DX: I11.0 Hypertensive heart disease with heart failure (principal); I50.21 Acute systolic (congestive) heart failure; S32.010A Wedge compression fracture of first lumbar vertebra, initial encounter for closed fracture; I25.10 Atherosclerotic heart disease of native coronary artery without angina pectoris; E11.9 Type 2 diabetes mellitus without complications; E78.5 Hyperlipidemia, unspecified; T25.222A Burn of second degree of left foot, initial encounter; T25.221A Burn of second degree of right foot, initial encounter; X10.2XXA Contact with fats and cooking oils, initial encounter; W19.XXXA Unspecified fall, initial encounter
CPT/HCPCS: 36415; 36600; 71045; 71275; 72131; 73564; 73630; 80053; 81001; 82805; 82948; 83605; 83880; 85018; 85025; 85055; 85380; 85610; 85730; 87637; 93005; 93306; 93458; 96374; 97162; 97165; 99285; A9270; C1769; C1887; C1894; C8929; G0378; J0360; J1644; J1650; J1815; J1938; J2003; J2250; J2270; J2305; J3010; J3480; J7030; J7040; Q9957; Q9967

== ENCOUNTER 2025-04-03 14:29 | Outpatient (CLI) | payer MEDICARE, MEDICAID, SELFPAY ==
--- NOTE | ~2025-04-03 | CT_ITS ---
EXAMINATION: CT diagnostic chest wo con DATE: 04/03/2025 14:54 INDICATION: CAD INVOLVING PICAYUNE CORONARY ARTERY TECHNIQUE: Computed tomography (CT) of the chest was performed with 100 mL Omnipaque-350 intravenous contrast. Automated exposure control and iterative reconstruction technique were employed. The dose-l ength product was 103.81 mGy-cm. COMPARISON: [facility] 03/04/2025. FINDINGS: CHEST: Thoracic aorta: No significant dilation. Mild atherosclerotic arch calcifications. Low-density blood pool. Lung parenchyma and airways: Tiny focus of tree-in-bud opacities in the medial upper right lobe. Sept al thickening. Dependent groundglass opacities. Patent airways. Thoracic inlet, axillae and chest wall: No thyroid or soft tissue mass. No axillary lymphadenopathy. Mediastinum: Enlarged pretracheal lymph node. No mass. Heart and pericardium: Cardiomegaly. Coronary artery calcifications: Heavy. Pleura: Trace right and small left pleural effusions. Upper abdomen: No significant finding. Thoracic bones: Moderate anterior wedge deformity at L2 with superior endplate fracture and fracture lines extending to the posterior cortex. 3 mm retropulsion. IMPRESSION: Tiny focus of tree-in-bud opacities in the medial right upper lung, may represent atypical infection. Mild pulmonary edema. Trace right and small left pleural effusions. Cardiomegaly with heavy coronary artery calcifications. Pulmonary hypertension. Mediastinal lymphadenopathy. Findings suggestive of anemia. Progression of the L2 fracture, now a moderate burst fracture with 3 mm posterior displacement. Reviewed, dictated and finalized at location K. IMPRESSION: Tiny focus of tree-in-bud opacities in the medial right upper lung, may represe nt atypical infection. Mild pulmonary edema. Trace right and small left pleural effusions. Cardiomegaly with heavy coronary artery calcifications. Pulmonary hypertension. Mediastinal lymphadenopathy. Findings suggestive of anemia. Progression of the L2 fracture, now a moderate burst fracture with 3 mm posteri or displacement.
--- OUTSIDE RECORDS SUMMARY | 2025-04-03 14:41 | XMS_ITS | Referral Summary ---
Author Organization [facility] [address] Address [address] [facility] 5th [place] [address] Care Team Providers Care Credit Card Specialist Name Role Phone Zachariah Cruz MD Primary Care Provider [phone] Encounters Date Type Department Care Team Description 04/02/2025 9:45 AM CDT Office Visit [facility] Medical [facility] Cardiology [address] [address] [address] [place] [address] Nishant Romeo MD Dyslipidemia; Coronary artery disease involving [place] coronary artery of [place] heart without angina pectoris 03/26/2025 Orders Only [facility] Surgery [address] [place] [address] [address] [place] [address] Josue Martínez MD Coronary artery disease involving [place] coronary artery of [place] heart without angina pectoris (Primary Dx) 03/26/2025 Telephone [facility] Family Medicine at [address] [place] [phone] Zachariah Cruz MD Medication Problem 03/26/2025 2:30 PM CDT Office Visit [facility] Surgery [address] [place] [address] [address] [place] [address] Josue Martínez MD Coronary artery disease involving [place] coronary artery of [place] heart without angina pectoris (Primary Dx); Coronary artery disease, unspecified vessel or lesion type, unspecified whether angina present, unspecified whether agua [place] or transplanted heart 03/19/2025 Telephone [facility] Family Medicine at [address] [place] [address] Zachariah Cruz MD 03/14/2025 11:00 AM CDT Office Visit [facility] Medical [facility] Family Medicine at [address] [place] [address] Zachariah Cruz MD Uncontrolled type 2 diabetes mellitus with hyperglycemia (HCC) (Primary Dx); Dyslipidemia; Coronary artery disease involving [place] coronary artery of [place] heart without angina pectoris; Closed wedge compression fracture of T8 vertebra with routine healing, subsequent encounter; Debility 03/12/2025 Orders Only [facility] Health Information Management [address] [place] [address] Scanning, Provider 03/11/2025 Telephone [facility] Family Medicine at [address] [place] [address] Unknown, Notinfile Appointment Request 03/08/2025 Telephone [facility] Cardiology [address] [place] [address] Nishant Romeo MD 03/05/2025 Orders Only [facility] Health Information Management [address] [place] [address] Scanning, Provider from Last 3 Months Allergies No known active allergies Medications mupirocin (BACTROBAN) 2 % ointment Apply 1 Application topically daily 025 Active metFORMIN (GLUCOPHAGE) 1,000 mg tabletIndication s:Uncontrolled type 2 diabetes mellitus with hyperglycemia (HCC) Take 1 tablet (1,000 mg total) by mouth 2 (two) times a day with meals 180 tablet 1 2024 Active dapagliflozin propanediol (FARXIGA) 10 mg tabletIndication s:Uncontrolled type 2 diabetes mellitus with hyperglycemia (HCC) Take 1 tablet (10 mg total) by mouth daily 90 tablet 1 2024 Active metoprolol XL (TOPROL-XL) 50 mg extended release tabletIndication s:Coronary artery disease involving [place] coronary artery of [place] heart without angina pectoris Take 1 tablet (50 mg total) by mouth daily 90 tablet 1 025 2024 Active spironolactone (ALDACTONE) 25 mg tabletIndication s:Coronary artery disease involving [place] coronary artery of [place] heart without angina pectoris Take 1 tablet (25 mg total) by mouth daily 90 tablet 1 025 2024 Active Entresto 49-51 mg tabletIndication s:Coronary artery disease involving [place] coronary artery of [place] heart without angina pectoris Take 1 tablet by mouth 2 (two) times a day 180 tablet 1 025 2024 Active traMADoL (ULTRAM) 50 mg tabletIndication s:Closed wedge compression fracture of T8 vertebra with routine healing, subsequent encounter Take 1 tablet (50 mg total) by mouth 3 (three) times a day as needed for pain 90 tablet 025 2024 Active blood glucose diagnostic stripIndications :Uncontrolled type 2 diabetes mellitus with hyperglycemia (HCC) 1 each by other route as directed BID 200 each 3 025 2025 Active alcohol swabs (Alcohol Pads) pads, medicatedIndicat ions:Uncontrolle d type 2 diabetes mellitus with hyperglycemia (HCC) Apply 1 each topically 2 (two) times a day 200 each 3 025 2025 Active lancets miscIndications: Uncontrolled type 2 diabetes mellitus with hyperglycemia (HCC) 1 each by other route as directed BID 200 each 3 025 2025 Active ferrous sulfate 325 mg (65 mg of elemental iron) tabletIndication s:Iron Deficiency Anemia Take 1 tablet (325 mg total) by mouth 2 (two) times a day 180 tablet 1 025 2024 Active blood-glucose sensor (Dexcom G7 Sensor) deviceIndication s:Uncontrolled type 2 diabetes mellitus with hyperglycemia (HCC) Dexcom G7 sensor use for 10 days to monitor blood sugar. 9 each 3 Active miscellaneous medical supply miscIndications: Closed wedge compression fracture of T8 vertebra with routine healing, subsequent encounter,Debili ty One standard wheelchair 1 each Active insulin glargine (TOUJEO) 300 unit/mL (1.5 mL) pen for injectionIndicat ions:Uncontrolle d type 2 diabetes mellitus with hyperglycemia (HCC) Inject 40 Units under the skin daily 3 mL 11 Active pen needle, diabetic 32 gauge x 32 needleIndication s:Uncontrolled type 2 diabetes mellitus with hyperglycemia (HCC) Use to inject insulin daily as directed. 100 each 4 Active blood-glucose,re ceiver,cont (Dexcom G7 Tracer Lathe Set Up Operator) miscIndications: Uncontrolled type 2 diabetes mellitus with hyperglycemia (HCC) USE DAILY TO MONITOR BLOOD SUGAR. 1 each Active OneTouch Verio Flex meter miscIndications: Uncontrolled type 2 diabetes mellitus with hyperglycemia (HCC) USE DIRECTED 1 each Active atorvastatin (LIPITOR) 40 mg tabletIndication s:Dyslipidemia Take 1 tablet (40 mg total) by mouth nightly 90 tablet 3 2025 Active furosemide (LASIX) 40 mg tabletIndication s:Coronary artery disease involving [place] coronary artery of [place] heart without angina pectoris Take 1 tablet (40 mg total) by mouth daily 30 tablet 2 2024 Active aspirin 81 mg enteric coated tablet Take 1 tablet (81 mg total) by mouth daily 90 tablet 3 2025 Active Entresto 49-51 mg tablet Take 1 tablet by mouth 2 (two) times a day 025 2024 Discontinued(R eorder) spironolactone (ALDACTONE) 25 mg tablet Take 1 tablet (25 mg total) by mouth daily 025 2024 Discontinued(R eorder) metoprolol XL (TOPROL-XL) 25 mg extended release tablet Take 1 tablet (25 mg total) by mouth daily 2024 Discontinued(R eorder) ferrous sulfate 325 mg (65 mg of elemental iron) tabletIndication s:Iron Deficiency Anemia Take 1 tablet (325 mg total) by mouth daily with breakfast 2024 Discontinued(R eorder) docusate sodium (COLACE) 100 mg capsuleIndicatio ns:constipation Take 1 capsule (100 mg total) by mouth daily as needed for constipation 2024 Discontinued(T herapy completed) metFORMIN (GLUCOPHAGE) 500 mg tablet Take 2 tablets (1,000 mg total) by mouth daily 2024 Discontinued(R eorder) dapagliflozin propanediol (FARXIGA) 10 mg tablet Take 1 tablet (10 mg total) by mouth daily 2024 Discontinued(R eorder) atorvastatin (LIPITOR) 20 mg tablet Take 1 tablet (20 mg total) by mouth nightly 2024 Discontinued(R eorder) insulin glargine 100 unit/mL (3 mL) pen for injectionIndicat ions:Uncontrolle d type 2 diabetes mellitus with hyperglycemia (HCC) Inject 40 Units under the skin shank scourer before breakfast 12 mL 2 025 2024 Discontinued atorvastatin (LIPITOR) 20 mg tabletIndication s:Dyslipidemia Take 1 tablet (20 mg total) by mouth nightly 90 tablet 3 025 2024 Discontinued(R eorder) blood-glucose meter (glucose monitoring kit) kitIndications:U ncontrolled type 2 diabetes mellitus with hyperglycemia (HCC) 1 each once for 1 dose 1 kit 025 2024 Discontinued furosemide (LASIX) 20 mg tabletIndication s:Coronary artery disease involving [place] coronary artery of [place] heart without angina pectoris Take 1 tablet (20 mg total) by mouth daily 30 tablet 2 025 2024 Discontinued(R eorder) blood-glucose,re ceiver,cont (Dexcom G7 Tracer Lathe Set Up Operator) miscIndications: Uncontrolled type 2 diabetes mellitus with hyperglycemia (HCC) Dexcom G7 aircraft servicer use daily to monitor blood sugar. 1 each 025 2024 Discontinued Active Problems Problem Noted Date Diagnosed Date Coronary artery disease of n ative heart with stable angina pectoris 03/26/2025 Uncontrolled type 2 diabetes mellitus with hypoglycemia without coma 03/14/2025 Closed wedge compression fracture of T8 vertebra 03/14/2025 Overview (03/14/2025): L1. Acute. Start Tramadol PT Assessment & Plan (03/14/2025 12:35 PM CDT): Pt needs a standard wheelchair, she cannot use a standard walker or cane due to gait instability and being a fall risk. Patient has mobility limitations. A manual wheelchair will significantly improve the patients ability to participate in MRADL. It will be used on a regular basis. The patient is willing to use a wheelchair. Patient has sufficient upper extremity function and other physical and mental capabilities to safely self propel the wheelchair in the home on a typical day. Limitations of strength, endurance, range of motion, coordination, presence of pain, or deformity or absence of one or both upper extremities are relevant to the assessment of upper extremity function. Caregiver is available and willing to provide assistance. Coronary artery disease invo lving agua cal[place] coronary artery of [place] heart without angina pectoris 03/14/2025 Overview (03/14/2025): CAD Unclear history of [facility] Hospitalization. Family unaware what's the plan. Card Referral. Start Lasix Dyslipidemia 03/14/2025 Social History Tobacco Use Types Packs/Day Years Used Date Smoking Tobacco: Never Smokeless Tobacco: Never Tobacco Cessation:Counseling Given: Not Answered AUDIT-C Answer Date Recorded Q1: How often do you have a drink containing alcohol? Never 03/14/2025 Q2: How many drinks containi ng alcohol do you have on a typical day when you are drinking? Patient does not drink Q3: How often do you have si x or more drinks on one occasion? Never 03/14/2025 PHQ-2 Answer Date Recorded PHQ-2 Total Score (If total score is 3 or more points, staff should administer the PHQ-9) 0 03/14/2025 PHQ-9 Answer Date Recorded PHQ-9 Total Score 0 03/14/2025 Comments Unknown Sex and Gender Information Value Date Recorded Sex Assigned at Not on file Legal Sex Female 8:15 AM CDT Gender Identity Not on file Sexual Orientation Not on file Last Filed Vital Signs Vital Sign Reading Time Taken Comments Blood Pressure 200/90 04/02/2025 9:49 AM CDT Pulse 79 04/02/2025 9:49 AM CDT Temperature 36.7 C (98.1 F) 03/14/2025 11:36 AM CDT Respiratory Rate 16 04/02/2025 9:49 AM CDT Oxygen Saturation 97% 04/02/2025 9:49 AM CDT Inhaled Oxygen Concentration - - Weight 44.5 kg (98 lb) 04/02/2025 9:49 AM CDT Height 144.8 cm (4' 9) 04/02/2025 9:49 AM CDT Body Mass Index 21.21 04/02/2025 9:49 AM CDT Plan of Treatment Upcoming Encounters Date Type Department Care Team (Latest Contact Info) Description 04/18/2025 7:30 AM CDT Hospital Encounter [facility] Operating Room [address] [place] [address] Josue [place] [address] [facility] [address] [place] [address] 04/18/2025 7:30 AM CDT Anesthesia Event [facility] Operating Room [address] [place] [address] Madison Downey DENTAL ASSISTANT MEDICAL ASSISTANT [address] [address] 04/18/2025 7:30 AM CDT - 04/18/2025 1:00 PM CDT Surgery [facility] Operating Room [address] [place] [address] Josue [place] [address] [facility] [address] [address] CABG X4, poss IABP Scheduled Procedures Name Priority Associated Diagnoses Date/Ti me CORONARY ARTERY BYPASS GRAFT - INTERNAL MAMMARY ARTERY Coronary artery disease of [place] heart with stable angina pectoris, unspecified vessel or lesion type 04/18/2025 7:30 AM CDT Procedures Procedure Name Priority Date/Time Associated Diagnosis Comments CARDIOLOGY DOCUMENT SCAN 03/12/2025 9:17 PM CDT CARDIOLOGY DOCUMENT SCAN 03/05/2025 from Last 3 Months Results * Cardiology Document Scan (03/12/2025 9:17 PM CDT) Anatomical Region Laterality Modality Other us Provider Scanning CV CARDIAC SERVICES PROCEDURES Final Result * Cardiology Document Scan (03/05/2025) Anatomical Region Laterality Modality Other us Provider Scanning CV CARDIAC SERVICES PROCEDURES Final Result from Last 3 Months Insurance [facility] Address: [address] [address] [place] [address] [facility] MEDICARE ADVANTAGE ID[employer] Advance Directives For more information, please contact: [phone] Documents on File Type Date Recorded Patient Car Sales Representative Expl anation Power of Chief Security Officer 03/28/2025 2:34 PM Care Teams Credit Card Specialist Relationship Specialty Start Date End Date Zachariah Cruz MD [address] [place] [address] [place] [address] PCP - General Family Medicine 03/14/25
--- OUTSIDE RECORDS SUMMARY | 2025-04-03 14:42 | XMS_ITS | Encounter Summary ---
Author Organization [facility] Address [address] [place] [address] Care Team Providers Care Executive Marketing Assistant Name Role Phone Unknown, Notinfile Primary Care Provider Unavail able Lorrie Martin MD Primary Care Provider [phone] Zachariah Cruz MD Primary Care Provider [phone] Reason for Visit * Reason Onset Date Comments Appointment Request 03/11/2025 Encounter Details Date Type Department Care Team (Late st Contact Info) Description 03/11/2025 Telephone [facility] Family Medicine at [address] [place] [address] Unknown, Notinfile Appointment Request Social History Tobacco Use Types Packs/Day Years Used Date Smoking Tobacco: Never Assessed AUDIT-C Answer Date Recorded Q1: How often [...] on file Sexual Orientation Not on file documented as of this encounter Functional Status * Audit-C Score Answer Date of Assessment Author 0 03/14/2025 11:34 AM CDT Curry LPN * Question Answer Date of Assessment Author Q1: How often do you have a drink containing alcohol? Never 03/14/2025 11:34 AM CDT Yudelka Harris L PN Q2: How many drinks containing alcohol do you have on a typical day when you are drinking? Patient does not drink 03/14/2025 11:34 AM CDT Yudelka Harrsi LPN Q3: How often do you have six or more drinks on one occasion? Never 03/14/2025 11:34 AM CDT Yudelka Harris L PN documented as of this encounter Miscellaneous Notes * Telephone Encounter - Echo Banegas - 03/11/2025 1:28 PM CDT Appt scheduled for 03/14/2025 @ 11:00 * Telephone Encounter - Monty Whitaker MA - 03/11/2025 1:07 PM CDT Appointment Request What visit type does the patient need? Visit Type: New Patient What is the reason for the visit? New patient appt with Dr. Cruz is currently on 03/26/25. Patients son calling requesting appt be rescheduled to be seen at an earlier date due to patient being admitted to [facility] on 03/04/25 and discharged on 03/09/25. What is the reason we were unable to schedule the appointment? Current appointment availability didnot meet patient's need. If applicable, were all members of the patient's PCP care team offered (e.g., nurse practioner(s), physician assistant drafter(s)) ? No Additional Comments: Call back requested please. Does message need to be routed? Yes-Action Needed documented in this encounter Plan of Treatment Upcoming Encounters Date Type Department Care Team (Latest Contact Info) Description 04/18/2025 7:30 AM CDT Hospital Encounter [facility] Operating Room [address] [place], [place] [id number] Josue [place] [address] [facility] [address], [place] [address] 04/18/2025 7:30 AM CDT Anesthesia Event [facility] Operating Room [address] [place] [address] [place] [address] [address] 04/18/2025 7:30 AM CDT - 04/18/2025 1:00 PM CDT Surgery [facility] Operating Room [address] [place] [address] Josue Martí[place] [address] [facility] [address], [place] [address] CABG X4, poss IABP Scheduled Procedures Name Priority Associated Diagnoses Date/Ti mi CORONARY ARTERY BYPASS GRAFT - INTERNAL MAMMARY ARTERY Coronary artery disease of [place] heart with stable angina pectoris, unspecified vessel or lesion type 04/18/2025 7:30 AM CDT documented as of this encounter Visit Diagnoses Not on filedocumented in this encounter Care Teams Executive Marketing Assistant Relationship Specialty Start Date End Date Unknown, Notinfile PCP - General 02/20/25 03/11/25 Lorrie Martin MD [address] [place] [address] PCP - General Internal Medicine 03/12/25 03/13/25 Zachariah Cruz MD [address] [address] PCP - General Family Medicine 03/14/25 documented as of this encounter
--- OUTSIDE RECORDS SUMMARY | 2025-04-03 14:42 | XMS_ITS ---
Author Organization [facility] Address [address] [facility] [address] Care Team Providers Care Glove Presser Name Role Phone Regina Donald Primary Care Provider Unav ailable REGINA VILLATORO Unavailable [phone] REASON FOR VISIT annual Social History Sex Assigned At : Social History Observation Description Sex Assigned At Female Encounters Encounter Location Date Provider Diagnosis Dalila [facility] [address] [place] [address] 01/30/2024 REGINA VILLATORO Plan Of Treatment No Information Progress Notes * OSCAR JACOBS SDOB:11/1954 (69 yo F)Acc No.[id number]:01/30/2024 Progress Notes Patient: OSCAR MITTAL Provider: HARINI Mendez :1955 A ge:68 Y S ex:Female Date:01/30/2024 [address] [facility] [address] [place] Pcp:HARINI Alejo Subjective: * Chief Complaints: * 1 . Annual. * Medical History: Objective: * Vitals: Assessment: Plan: * Treatment: * Billing Information: * Visit Code: * Procedure Codes: Care Plan Details* * Electronic signature of HARINI GAINES on 04/03/2025 at 02:41 PM CDT Sign off status: Pending * Provider: Chiquita Villatoro, RECYCLING SPECIALIST Date: 0 01/30/2024 Generated for Shraddha lea/Elvia/Papi on: 0 04/03/2025 02:41 PM CDT
--- OUTSIDE RECORDS SUMMARY | 2025-04-03 14:42 | XMS_ITS | Patient Health Record ---
Author Organization [facility] Address [address] [facility] [place] [address] Care Team Providers Care Envelope Machine Adjuster Name Role Phone Shauna Regina SCHULER Primary Care Provider REGINA Francois Unavailable [phone] Allergies No Known Allergies Reason For Referral No Information Medications Medication SIG (Take, Route, Frequency, Duration) Notes Start Date End Date Status Losartan Potassium 100 MG 1 tablet Orally Once a day; Duration: 90 days Active Blood Glucose Test - to check blood gluc ose apply blood to strip twice daily; Duration: 90 days Not-Taking Atorvastatin Calcium 10 MG 1 tablet Orally Once a day; Duration: 90 days Active Glucose 5 GM 3 tabs Orally for glucose < 80; Duration: 90 days 06/14/2022 Active Blood Glucose Test Strip - Apply blood to strip In Vitro four times a day; Duration: 90 days 05/04/2022 Active Blood Glucose Test - as directed In Vitr o four times a day; Duration: 90 days Not-Taking Lancets - check blood glucose MISCELLANEOUS four times a day; Duration: 90 days Not-Chris ing Ferrous Sulfate 325 (65 Fe) MG 1 tablet Orally Once a day; Duration: 90 days Not-Takin g Metoprolol Succinate ER 25 MG 1 tablet Orally Once a day; Duration: 90 days Not-Takin g metFORMIN HCl 1000 MG 1 tablet with a me al Orally Once a day; Duration: 90 days Active Pen Rodeo 16 31G X 8 MM apply to insulin pen inject subcutaneous four times a day; Duration: 90 days Not-Taking Fenofibrate Micronized 67 MG 1 capsule with a meal Orally Once a day; Duration: 90 days 05/04/2022 Active amLODIPine Besylate 10 MG 1 tablet Orally Once a day; Duration: 90 days Not-Takin g Lantus SoloStar 100 UNIT/ML Inject 20 units Subcutaneous every night; Duration: 90 days Active NovoLOG FlexPen 100 UNIT/ML 16 units Subcutaneous three times a day with meals; Duration: 90 days Active Immunizations Vaccine Route Administration Date Status Comme nts FLU VACCINE, fluzone, (3yrs & older) Unknown 05/28/2020 Pending Social History Tobacco Use: Social History Observation Description Date Details (start date - stop date) Never Smoker NA - NA Sex Assigned At : Social History Observation Description Sex Assigned At Female Tobacco Use/Smoking Question Answer Notes Are you a nonsmoker Alcohol Screen (Audit-C) Question Answer Notes Did you have a drink containing alcohol in the p ast year? No Points 0 Interpretation Negative Problems Problem Type SNOMED Code ICD Code Onset Dates Problem Status W/U Status Risk Notes Problem Diabetic renal disease (232271708) Type 2 diabetes mellitus with diabetic chronic kidney disease (E11.22) Active confirmed Problem Essential hypertension (37412375) Essential (primary) hypertension (I10) 2018 Active confirmed Problem Chronic kidney disease due to hypertension (918600831941256) Hypertensive chronic kidney disease with stage 1 through stage 4 chronic kidney disease, or unspecified chronic kidney disease (I12.9) Active confirmed Problem Hypertriglyceridemia (691309789) HYPERTRIGLYCERIDEMIA (E78.1) Active confirmed Problem Hyperlipidaemia (65092233) HLD (hyperlipidemia) (E78.5) Active confirmed Problem Hyperglycemia due to type 2 diabetes mellitus (402462111130330) Uncontrolled type 2 diabetes mellitus with hyperglycemia (E11.65) Active confirmed Problem Hypoglycemia due to type 2 diabetes mellitus (164442559497159) Hypoglycemia associated with type 2 diabetes mellitus (E11.649) Active confirmed Problem Chronic kidney disease stage 3 (disorder) (592977850) Chronic kidney disease, stage 3 unspecified (N18.30) Active confirmed Problem Hyperglycemia due to type 2 diabetes mellitus (113356897553436) Type 2 diabetes mellitus with hyperglycemia (E11.65) 2018 Active confirmed Problem Essential hypertension (53649380) HYPERTENSION, ESSENTIAL (I10) 2018 Active confirmed Plan Of Treatment Pending Test Test Name Order Date * URINALYSIS DIP INHOUSE 05/28/2020 * A1C INHOUSE 04/17/2020 * MICROALBUMIN 05/28/2020 *Obtain ER Visit 04/17/2020 HRA - Adult 05/28/2020 Future Test Test Name Order Date MAMMOGRAM, SCREENING 04/20/2022 CBC (INCLUDES DIFF/PLT) 04/20/2022 Insurance Providers Payer Name Payer Address Payer Phone Subscriber Number Group Number Insured Name Patient Relationship to Insured Coverage Start Date Coverage End Date [employer] PART A [address] [place] [id number] APARNA JACOBS Self - patient is the insured [employer] [place] [address] [address] [place] [address] [id number] APARNA JACOBS Self - patient is the insured [facility] [address] [address] [id number] [place] [address] [id number] APARNA JACOBS Self - patient is the insured Medical (General) History Medical History History ICD Code DM2
--- OUTSIDE RECORDS SUMMARY | 2025-04-03 14:42 | XMS_ITS | Encounter Summary ---
Author Organization [facility] Healthcare Address [address] [place] [address] Care Team Providers Care Marketing And Communications Officer Name Role Phone Unknown, Notinfile Primary Care Provider Unavail able Lorrie Martin MD Primary Care Provider [phone] Zachariah Cruz MD Primary Care Provider [phone] Encounter Details Date Type Department Care Team (Late st Contact Info) Description 03/05/2025 Orders Only [facility] Health Information Management [address] [place] [address] Scanning, Provider Social History Tobacco Use Types Packs/Day Years Used Date Smoking Tobacco: Never Assessed Comments Unknown Sex and Gender Information Value Date Recorded Sex Assigned at Not on file Legal Sex Female 8:15 AM CDT Gender Identity Not on file Sexual Orientation Not on file documented as of this encounter Plan of Treatment Upcoming Encounters Date Type Department Care Team (Latest Contact Info) Description 04/18/2025 7:30 AM CDT Hospital Encounter [facility] Operating Room [address] [place] [address] Josue [place] [address] [address] [facility] [address] [place] [address] 04/18/2025 7:30 AM CDT Anesthesia Event [facility] Operating Room [id number] [place] [address] [place] [address] [address] [facility] [address] [place] [address] 04/18/2025 7:30 AM CDT - 04/18/2025 1:00 PM CDT Surgery [facility] Operating Room [address] [place] [address] Josue Martí[place] [address] [facility] [address] [facility] [address] [place] [address] CABG X4, poss IABP Scheduled Procedures Name Priority Associated Diagnoses Date/Ti me CORONARY ARTERY BYPASS GRAFT - INTERNAL MAMMARY ARTERY Coronary artery disease of [place] heart with stable angina pectoris, unspecified vessel or lesion type 04/18/2025 7:30 AM CDT documented as of this encounter Procedures Procedure Name Priority Date/Time Associated Diagnosis Comments CARDIOLOGY DOCUMENT SCAN 03/05/2025 documented in this encounter Results * Cardiology Document Scan (03/05/2025) Anatomical Region Laterality Modality Other us Provider Scanning CV CARDIAC SERVICES PROCEDURES Final Result documented in this encounter Visit Diagnoses Not on filedocumented in this encounter Care Teams Marketing And Communications Officer Relationship Specialty Start Date End Date Unknown, Notinfile PCP - General 02/20/25 03/11/25 Lorrie Martin MD [address] [place] [address] PCP - General Internal Medicine 03/12/25 03/13/25 Zachariah Cruz MD [address] [address] PCP - General Family Medicine 03/14/25 documented as of this encounter
--- OUTSIDE RECORDS SUMMARY | 2025-04-03 14:42 | XMS_ITS | Clinical Summary ---
Author Organization [facility] Address [address] [facility] [address] [place] [address] Care Team Providers Care Coordinator Of Online Programs Name Role Phone Zachariah Cruz MD Primary Care Provider [phone] Allergies No known active allergies Medications mupirocin (BACTROBAN) 2 % ointment Apply 1 Application topically daily Active metFORMIN (GLUCOPHAGE) 1,000 mg tabletIndication s:Uncontrolled [...] extended release tabletIndication s:Coronary artery disease involving nez perce coronary artery of ne[place] perce heart without angina pectoris Take 1 tablet (50 mg total) by mouth daily 90 tablet 1 025 2024 Active spironolactone (ALDACTONE) 25 mg tabletIndication s:Coronary artery disease involving nez perce coronary artery of ne[place] perce heart without angina pectoris Take 1 tablet (25 mg total) by mouth daily 90 tablet 1 025 2024 Active Entresto 49-51 mg tabletIndication s:Coronary artery disease involving nez perce coronary artery of ne[place] heart without angina pectoris Take 1 tablet [...] Active pen needle, diabetic 32 gauge x 532 needleIndication s:Uncontrolled type 2 diabetes mellitus with hyperglycemia (HCC) Use to inject insulin daily as directed. 100 each 4 Active blood-glucose,re ceiver,cont (Dexcom G7 Bar Assistant) miscIndications: Uncontrolled type 2 diabetes mellitus with hyperglycemia (HCC) USE DAILY TO MONITOR BLOOD SUGAR. 1 each Active Cycle MoneyTouch Verio Flex meter miscIndications: Uncontrolled type 2 diabetes mellitus with hyperglycemia (HCC) USE DIRECTED 1 each Active atorvastatin (LIPITOR) 40 mg tabletIndication s:Dyslipidemia Take 1 tablet (40 mg total) by mouth nightly 90 tablet 3 025 2025 Active furosemide (LASIX) 40 mg tabletIndication s:Coronary artery disease involving nez perce coronary artery of nez perce heart without angina pectoris Take 1 tablet (40 mg total) by mouth daily 30 tablet 2 025 2024 Active aspirin 81 mg enteric coated tablet Take 1 tablet (81 mg total) by mouth daily 90 tablet 3 025 2025 Active Entresto 49-51 mg tablet Take [...] (HCC) Inject 40 Units under the skin linseed oil order filler before breakfast 12 mL 2 025 2024 [...] 20 mg tabletIndication s:Coronary artery disease involving nez perce coronary artery of ne[place] heart without angina pectoris Take 1 tablet (20 mg total) by mouth daily 30 tablet 2 025 2024 Discontinued(R eorder) blood-glucose,re ceiver,cont (Dexcom G7 Bar Assistant) miscIndications: Uncontrolled type 2 diabetes mellitus with hyperglycemia (HCC) Dexcom G7 television receiver analyzer use daily to monitor blood sugar. 1 [...] provide assistance. Coronary artery disease invo lving nez perce coronary artery of nez perce heart without angina pectoris 03/14/2025 Overview (03/14/2025): CAD Unclear history of [facility] Hospitalization. Family unaware what's the plan. Card Referral. Start Lasix Dyslipidemia 03/14/2025 Encounters Date Type Department Care Team Description 04/02/2025 9:45 AM CDT Office Visit [facility] Medical [facility] Cardiology [address] [facility] [address] [place] [address] Nishant Romeo MD Dyslipidemia; Coronary artery disease involving nez perce coronary artery of nez perce heart without angina pectoris 03/26/2025 2:30 PM CDT Office Visit [facility] Surgery [address] [place] [address] [address] [place] [address] Josue Martínez MD Coronary artery disease involving nez perce coronary artery of nez perce heart without angina pectoris (Primary Dx); Coronary artery disease, unspecified vessel or lesion type, unspecified whether angina present, unspecified whether nez perce or transplanted heart 03/26/2025 Orders Only [facility] Surgery [address] [place] [address] [address] [place] [phone] Josue Martínez MD Coronary artery disease involving nez perce coronary artery of nez perce heart without angina pectoris (Primary Dx) 03/26/2025 Telephone [facility] Family Medicine at [address] [place] [phone] Zachariah Cruz MD Medication Problem 03/19/2025 Telephone [facility] Family Medicine at [address] [place] [address] Zachariah Cruz MD 03/14/2025 11:00 AM CDT Office Visit [facility] Family Medicine at [address] [place] [address] Zachariah Cruz MD Uncontrolled type 2 diabetes mellitus with hyperglycemia (HCC) (Primary Dx); Dyslipidemia; Coronary artery disease involving nez perce coronary artery of nez perce heart without angina pectoris; Closed wedge compression fracture of T8 vertebra with routine healing, subsequent encounter; Debility 03/12/2025 Orders Only [facility] Health Information Management [address] [place] [address] Scanning, Provider 03/11/2025 Telephone [facility] Medical Group Family Medicine at [place] [address] [facility] [address] [place] [address] Unknown, Notinfile Appointment Request 03/08/2025 Telephone [facility] Medical Group Cardiology [address] [place] [address] Nishant Romeo MD 03/05/2025 Orders Only [facility] Health Information Management [address] [place] [address] Scanning, Provider from Last 3 Months Medical History Medical History Date Comments Diabetes mellitus (HCC) Hypertension Hyperlipidemia Family History Medical History Relation Name Comments Diabetes Father Diabetes Son Relation Name Status Comments Father Son Social History Tobacco Use Types Packs/Day Years [...] on file Sexual Orientation Not on file Obstetrics History Last Filed Vital Signs Vital Sign Reading [...] Description 04/18/2025 7:30 AM CDT Hospital Encounter [facility] Operating Room [address] [place] [address] Josue [place] [address] [facility] [address] [address] 04/18/2025 7:30 AM CDT Anesthesia Event [facility] Operating Room [address] [place] [address] [place] [address] [address] 04/18/2025 7:30 AM CDT - 04/18/2025 1:00 PM CDT Surgery [facility] Operating Room [address] [place] [address] Josue [place] [address] [facility] [address] [address] CABG X4, poss IABP Scheduled Procedures Name Priority Associated Diagnoses Date/Ti me CORONARY ARTERY BYPASS GRAFT - INTERNAL MAMMARY ARTERY Coronary artery disease of nez perce heart with stable angina pectoris, unspecified vessel or lesion type 04/18/2025 7:30 AM CDT Health Maintenance Due Date Last Done Comments Albumin Creatinine Ratio, Urine 1956 Breast Cancer Screening-Mammogram 1956 Colon Cancer Screening-Colonoscopy 1956 Hemoglobin A1C 1956 Hepatitis C Screening 1956 Osteoporosis Screening-Bone Density Scan 1956 eGFR 1956 Dilated Eye Exam 1956 Foot Exam 1956 Lipid Panel 1956 DTaP/Tdap/Td Vaccine (1 - Tdap) 1967 Hepatitis B Screening 1974 Pneumococcal vaccine 65+ (1 of 2 - PCV) 1975 Zoster Vaccine (1 of 2) 2006 Well Visit 65+ 2021 Influenza Vaccine (#1) 2025 Depression Screening 03/14/2026 03/14/2025, 03/14/20 25 Fall Risk Assessment 03/14/2026 03/14/2025 Procedures Procedure Name Priority Date/Time Associated Diagnosis [...] Final Result from Last 3 Months Insurance [facility] MEDICARE ADVANTAGE [facility] MEDICARE ADVANTAGE [employer] Advance Directives For more information, please contact: [phone] Documents on File Type Date Recorded Patient Line Installation Supervisor Expl anation Power of Chopped Strand Operator 03/28/2025 2:34 PM Care Teams Coordinator Of Online Programs Relationship Specialty Start Date End Date Zachariah Cruz MD [address] [facility] [place] [address] PCP - General Family Medicine 03/14/25
--- OUTSIDE RECORDS SUMMARY | 2025-04-03 14:42 | XMS_ITS | Encounter Summary ---
Author Organization [facility] Healthcare Address [address] [place] [address] Care Team Providers Care Mat Worker Name Role Phone Zachariah Cruz MD Primary Care Provider [phone] Reason for Visit * Reason Comments Hospital Follow Up Encounter Details Date Type Department Care Team ([facility] Contact Info) Description 04/02/2025 9:45 AM CDT Office Visit [facility] Medical Group Cardiology [address] [place] [phone] Nishant Romeo MD [address] [place] [address] Dyslipidemia; Coronary artery disease involving [place] coronary artery of [place] heart without angina pectoris Social History Tobacco Use Types Packs/Day Years Used Date Smoking Tobacco: Never Smokeless Tobacco: Never AUDIT-C Answer Date Recorded Q1: How often [...] on file documented as of this encounter Last Filed Vital Signs Vital Sign Reading Time Taken Comments Blood Pressure 200/90 04/02/2025 9:49 AM CDT Pulse 79 04/02/2025 9:49 AM CDT Temperature - - Respiratory Rate 16 04/02/2025 9:49 AM CDT Oxygen Saturation 97% 04/02/2025 9:49 AM CDT Inhaled Oxygen Concentration - - Weight 44.5 kg (98 lb) 04/02/2025 9:49 AM CDT Height 144.8 cm (4' 9) 04/02/2025 9:49 AM CDT Body Mass Index 21.21 04/02/2025 9:49 AM CDT documented in this encounter Ordered Prescriptions Prescription Sig Dispense Quantity Refills Last Filled Start Date End Date aspirin 81 mg enteric coated tablet Take 1 tablet (81 mg total) by mouth daily 90 tablet 3 04/02/2025 6 furosemide (LASIX) 40 mg tabletIndications: Coronary artery disease involving [place] coronary artery of [place] heart without angina pectoris Take 1 tablet (40 mg total) by mouth daily 30 tablet 2 04/02/2025 5 atorvastatin (LIPITOR) 40 mg tabletIndications: Dyslipidemia Take 1 tablet (40 mg total) by mouth nightly 90 tablet 3 04/02/2025 6 documented in this encounter Progress Notes * Nishant Romeo MD - 04/02/2025 9:45 AM CDT [facility] CARDIOLOGY CHIEF COMPLAINT / REASON FOR CONSULT: Follow up for ischemic cardiomyopathy HISTORY: Lizzy Zabala is a 69 y.o. female with chronic systolic heart failure (LVEF 35-40%), coronary artery disease, diabetes, hypertension, and hyperlipidemia returns for follow up of her cardiac care. She denies any chest pain. No shortness of breath. Uses 2 pillows to sleep at night which has been stable. No syncopal events. She does have development of lower extremity swelling that is worsening for which she was prescribed Lasix which was increased from 20 mg once daily to twice in the morning with improvements. Exercise Tolerance: Ambulates within the confines of her home Social: Denies tobacco use Family History: Medications: Aspirin 81 mg p.o. daily Atorvastatin 40 mg every evening Entresto 49-51 mg p.o. b.i.d. Toprol 50 mg p.o. daily Farxiga 10 mg p.o. daily Spironolactone 25 mg p.o. daily Lasix 40 mg p.o. daily Metformin Insulin REVIEW OF SYSTEMS: GENERAL: As per HPI CVS: As per HPI HEME: No bruising, no bleeding PHYSICAL EXAMINATION: BP (!) 200/90 (BP Location: Left arm, Patient Position: Sitting) Pulse 79 Resp 16 Ht 144.8 cm(4' 9) Wt 44.5 kg (98 lb) SpO2 97% BMI 21.21 kg/m?? GENERAL: Alert, in no distress HEAD: Normocephalic and atraumatic EYES: Extraocular movement intact ENT: Unremarkable NECK: no jugular venous distention CHEST: Clear to auscultation, no wheezes, rales or rhonchi, symmetric air entry CARDIAC: Regular rate and rhythm, S1 S2 normal, no murmur, rub, heaves, thrills or gallops ABDOMEN: soft, nontender, no bruit EXTREMITIES: No edema PERIPHERAL PULSES: Peripheral pulses symmetrical SKIN: Warm and dry NEURO: Alert and oriented x 3 LABS: No results found for: CHOL No results found for: HDL No results found for: LDLCALC No results found for: TRIG No results found for: CHOLHDL No results found for: HGBA1C CARDIAC IMAGING RESULTS REVIEW: Echo 02/2025: The left ventricle is mildly dilated. The LVEF is estimated to be 35-40%. Right ventricular size and systolic function is normal. Left atrium is mildly dilated. No significant valvular abnormalities. Cardiac CT Stress Test Cardiac Monitors Cath 02/2025: Left main has 20% stenosis. Lad has a long area of 50-70% severely calcified stenosis in the midportion. Left circumflex has diffuse 30% stenosis. OM1 has 40% stenosis. OM2 is a small caliber vessel supplying a small territory. OM3 has long diffuse 70% stenosis. RCA has 30% stenosis. RPDA has 20% stenosis. RPL has diffuse 80-90% stenosis. ASSESSMENT/PLAN: 69 y.o. female with chronic systolic heart failure (LVEF 35- 40%), coronary artery disease, diabetes, hypertension, and hyperlipidemia returns for follow up of her cardiac care Chronic systolic heart failure -She is on maximally tolerated guideline directed medical therapy to include Entresto 49-51 mg p.o.b.i.d., spironolactone 25 mg p.o. daily, metoprolol succinate 50 mg p.o. daily, and Farxiga 10 mg p.o. daily -She is requiring Lasix 40 mg p.o. daily to maintain euvolemia Coronary artery disease -She has obstructive CAD and likely the reason for her systolic heart failure -Aspirin 81 mg p.o. daily and CABG early next month Hyperlipidemia -Atorvastatin 40 mg every evening Hypertension -She did not take her morning medications and likely the reason for her elevated blood pressure today Return to clinic in 6 months Nishant Romeo MD Voice recognition software was used to complete this document, therefore, dry roller variances may occur. documented in this encounter Plan of Treatment Upcoming Encounters Date Type Department Care Team (Latest Contact Info) Description 04/18/2025 7:30 AM CDT Hospital Encounter [facility] Operating Room [address] [place] [address] [place]ue [place] [address] [facility] [address] [address] 04/18/2025 7:30 AM CDT Anesthesia Event [facility] Operating Room [address] [place] [address] [place] [address] [address] 04/18/2025 7:30 AM CDT - 04/18/2025 1:00 PM CDT Surgery [facility] Operating Room [address] [place] [address] Josue [place] [address] [address] [address] CABG X4, poss IABP Scheduled Procedures Name Priority Associated Diagnoses Date/Ti me CORONARY ARTERY BYPASS GRAFT - INTERNAL MAMMARY ARTERY Coronary artery disease of [place] heart with stable angina pectoris, unspecified vessel or lesion type 04/18/2025 7:30 AM CDT documented as of this encounter Visit Diagnoses Diagnosis Coronary artery disease of [place] heart with stable angina pectoris- Primary Dyslipidemia Other and unspecified hyperlipidemia Coronary artery disease involving [place] coronary artery of [place] heart without angina pectoris Coronary artery disease of [place] heart with stable angina pectoris, unspecified vessel or lesion type documented in this encounter Discontinued Medications Medication Sig Discontinue Reason Start Date End Da te atorvastatin (LIPITOR) 20 mg tabletIndications:Dyslip idemia Take 1 tablet (20 mg total) by mouth nightly Reorder 03/14/2025 04/02/2025 furosemide (LASIX) 20 mg tabletIndications:Garzon ry artery disease involving mes[place] grande coronary artery of [place] heart without angina pectoris Take 1 tablet (20 mg total) by mouth daily Reorder 03/14/2025 04/02/2025 documented as of this encounter Care Teams Mat Worker Relationship Specialty Start Date End Date Zachariah Cruz MD [address] [facility] [address] [place] [address] [place] [address] PCP - General Family Medicine 03/14/25 documented as of this encounter
== END 2025-04-03 14:30 | disposition home or self-care (01) ==
PROVIDERS: PCP Family Medicine; Visit Provider Thoracic Surgery (Cardiothoracic Vascular Surgery)
DX: I25.10 Atherosclerotic heart disease of native coronary artery without angina pectoris (principal); Z95.1 Presence of aortocoronary bypass graft
CPT/HCPCS: 71250